=== PATIENT | female | born 1970 | race Caucasian/White ===

== ENCOUNTER 2016-07-15 08:12 | Day surgery (SDC) | payer OTHER ==
[~2016-07-15 08:12] MED LIST: Lactated Ringers 1,000 ML IV SCH; Lidocaine 1%/Sod Bicarbonate in NS 8.4% 1 ML Syringe PRN; Sodium Chloride 0.9% 10 ML Syringe FLUSH PRN
[2016-07-15] MEDS ORDERED: Propofol 200 MG/20 ML SDV ONE ×4 (08:15→11:03)
[2016-07-15] MEDS ORDERED: Lidocaine 1% 4 ML ONE (08:15)
[2016-07-15] MEDS ORDERED: fentaNYL 100 MCG/2 ML SDV ONE ×2 (08:15→10:03)
[2016-07-15] MEDS ORDERED: Ondansetron 4 MG/2 ML SDV ONE (08:15)
[2016-07-15] MEDS ORDERED: Midazolam 1 MG/ML 2 ML SDV ONE (08:15)
[2016-07-15] MEDS ORDERED: ceFAZolin 1 GM Vial ONE (08:28)
--- NOTE | 2016-07-15 08:39 | PCM.PREANE ---
Preanesthetic Assessment - Anesthesia/Transfusion/Family Hx Anesthesia History: Prior Anesthesia Without Reaction Family History of Anesthesia Reaction: No Transfusion History: No Prior Transfusion(s) - Review of Systems General: No Symptoms Pulmonary: No Symptoms Cardiovascular: No Symptoms Gastrointestinal: No symptoms Neurological: Seizure (age 5-12 years "I had epilepsy") Other: Reports: None - Physical Assessment NPO Status Date: 07/14/16 NPO Status Time: 20:00 Pulse: 58 O2 Sat by Pulse Oximetry: 100 Respiratory Rate: 16 Blood Pressure: 119/82 Temperature: 37.3 C Height: 1.68 m Weight: 56.699 kg ASA Class: 2 Mental Status: Alert & Oriented x3 Airway Class: Mallampati = 1 Dentition: Reports: Normal Dentition Thyro-Mental Finger Breadths: 3 Mouth Opening Finger Breadths: 3 ROM/Head Extension: Full Lungs: Clear to auscultation, Normal respiratory effort Cardiovascular: Regular Rate, Regular Rhythm, No Murmurs - Lab Values: Laboratory Last Values MRSA (PCR) Negative 07/13/16 09:40 - Allergies Allergies/Adverse Reactions: Allergies Allergy/AdvReac Type Severity Reaction Status Date / Time No Known Allergies Allergy Verified 07/14/16 15:44 - Blood Blood Available: No Product(s) Available: None - Anesthesia Plan Pre-Op Medication Ordered: None - Acknowledgements Anesthesia Type Planned: MAC Pt an Appropriate Candidate for the Planned Anesthesia: Yes Alternatives and Risks of Anesthesia Discussed w Pt/Guardian: Yes Pt/Guardian Understands and Agrees with Anesthesia Plan: Yes PreAnesthesia Questionnaire HEENT History: Reports: Allergic rhinitis Cardiovascular History: Reports: None Respiratory History: Reports: None Gastrointestinal History: Reports: None 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: , 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 Musculoskeletal History: Reports: Arthritis, Other (see below) Other Musculoskeletal History: 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, degenerative joint pain Neurological History: Reports: Seizure Psychiatric History: Reports: Anxiety, Depression Endocrine/Metabolic History: Reports: None Hematologic History: Reports: None Immunologic History: Reports: None Oncologic (Cancer) History: Reports: None Dermatologic History: Reports: Other (see below) Other Dermatologic History: acne, mixed cryofibrinogenemia - Past Surgical History Head Surgeries/Procedures: Reports: None HEENT Surgical History: Reports: Oral surgery Female Surgical History: Reports: Cervical cryotherapy, Tubal ligation Other Female Surgeries/Procedures: dysmenorrhea, menorrhagia, pre mentstural dyspohric disorder, thickened endometrium Male Surgical History: Reports: Other (see below) Musculoskeletal Surgical History: Reports: Other (see below) Other Musculoskeletal Surgeries/Procedures:: bilateral foot surgery, knee surgery - SUBSTANCE USE Smoking Status *Q: Former Smoker Days Per Week of Alcohol Use: 7 Number of Drinks Per Day: 1 Total Drinks Per Week: 7 Recreational Drug Use History: No - HOME MEDS Home Medications: Home Meds Citalopram Hydrobromide [Celexa] 40 mg PO DAILY 07/14/16 [History] Ethinyl Estradiol/Norgestrel [Cryselle 28-Day] 1 tab PO DAILY 07/14/16 [History] Multivitamin [Multivitamins] 1 tab PO DAILY 07/14/16 [History] Hydrocodone/Acetaminophen [Verona 5-325 Tablet] 1 - 2 each PO Q6H PRN #40 tablet 07/15/16 [Rx] Aspirin 325 mg PO BID #100 tablet 07/16/16 [Rx] - CURRENT (IN HOUSE) MEDS Current Meds: Current Medications Lactated Ringer's (Ringers, Lactated) 1,000 mls @ 125 mls/hr IV ASDIRECTED TYSON Stop: 07/15/16 23:00 Lidocaine/Sodium Bicarbonate (Buffered Lidocaine 1% In Ns 8.4%) 0.25 ml .XX ONETIME PRN PRN Reason: Prior to IV Start Stop: 07/15/16 18:00 Sodium Chloride (Saline Flush) 10 ml FLUSH ASDIRECTED PRN PRN Reason: Keep Vein Open Stop: 07/15/16 18:00 Discontinued Medications Cefazolin Sodium (Ancef) Confirm Administered Dose 2 gm .ROUTE .STK-MED ONE Stop: 07/15/16 08:29 Fentanyl (Sublimaze) Confirm Administered Dose 100 mcg .ROUTE .STK-MED ONE Stop: 07/15/16 08:16 Lidocaine HCl (Xylocaine-Mpf 1%) Confirm Administered Dose 4 mls @ as directed .ROUTE .STK-MED ONE Stop: 07/15/16 08:16 Midazolam HCl (Versed 1 Mg/Ml) Confirm Administered Dose 2 mg .ROUTE .STK-MED ONE Stop: 07/15/16 08:16 Ondansetron HCl (Zofran) Confirm Administered Dose 4 mg .ROUTE .STK-MED ONE Stop: 07/15/16 08:16 Propofol (Diprivan 20 Ml) Confirm Administered Dose 200 mg .ROUTE .STK-MED ONE Stop: 07/15/16 08:16 Preanesthetic Assessment - LAB Values: Laboratory Last Values MRSA (PCR) Negative 07/13/16 09:40 - ALLERGIES Allergies/Adverse Reactions: Allergies Allergy/AdvReac Type Severity Reaction Status Date / Time No Known Allergies Allergy Verified 07/14/16 15:44
[2016-07-15] MEDS ORDERED: Lidocaine 1% 30 ML SDV ONE (09:00)
[2016-07-15] MEDS ORDERED: Bupivacaine 0.25% 10 ML SDV ONE (09:01)
[2016-07-15] MEDS ORDERED: Bupivacaine 0.25% 30 ML SDV ONE (09:30)
[2016-07-15] MEDS ORDERED: Lactated Ringers 1,000 ML ONE (10:37)
--- NOTE | 2016-07-15 11:52 | CR ---
Right toe: Multiple fluoroscopic spot views were obtained utilizing C-arm device. Study shows surgery for bunionette deformity within the distal fifth metatarsal. Osteotomy is seen with pin placement. Fluoroscopy time given as 29.9 seconds. Impression: 1. Operative study as noted above. Diagnostic code #2
[2016-07-15] MEDS ORDERED: Acetaminophen/HYDROcodone 325-5 MG Tab PO ONE (12:45)
[2016-07-15 13:05] VITALS: BP 120/80
--- NOTE | 2016-07-21 13:16 | PCM.OPNOTE ---
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
--- NOTE | 2016-07-21 14:04 | OR ---
DATE OF OPERATION: 07/15/2016 SURGEON: Gilberto Duong MD OPERATION PERFORMED: 1. Right 5th metatarsal distal chevron osteotomy with bunionette correction. 2. Right 4th and 5th toe extensor lengthening with flexor tenotomy. 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 ANESTHESIA: Local MAC with regional block. ANESTHESIA PROVIDER: Luis Hutton CRNA. RADIOGRAPHY TECHNICIAN: Bobbi Alfaro PA-C. ESTIMATED BLOOD LOSS: Less than 15 mL. COMPLICATIONS: None. CONDITION: Stable. DESCRIPTION OF PROCEDURE: The patient was identified in the preop holding area. Proper site was marked and identified by the surgeon. The patient was taken back to the operating theater where after adequate anesthesia, the patient's right lower extremity was sterilely prepped and draped in the usual sterile fashion. OR time-out was performed. The patient received 2 g of IV Ancef. At this time, the right lower extremity was exsanguinated with a tourniquet on the thigh and tourniquet was insufflated to 250 mmHg. Ankle block was then performed along with anesthetization over the incisional area. Incision was made over the lateral aspect of the 5th distal metatarsal and this was taken down to the capsule and the capsulotomy was performed and a slight release of the medial capsule was then done. Next, distal chevron osteotomy was performed and this was removed roughly 4 to 5 mm medially with good correction and lateral eminence resection was then done as well. A K-wire was then placed in a retrograde fashion through the skin across the osteotomy site to hold it in place. It had good fixation at this time. At this time, attention was turned to the claw-toe deformities over both the 4th and 5th toes. Incision was made over the extensor tendons and both tendons were lengthened along with a capsulotomy performed of the dorsal capsule secondary to the MTP extension deformity. Next, incision was made over the proximal phalanx of both toes on plantar surface. The long toe to the flexor tendon was identified and tenotomy was performed at this time of both flexor tendons in 4th and 5th toes. Ethibond suture was used for suture to the length and the extensor tendons and a retrograde K-wire was placed through the small toe into the osteotomy site. This found to have adequate fixation with both pins. At this time, adequate saline was irrigated through the both wounds, lateral capsular closure with plication [id number] was done to the bunionette deformity using 0 Vicryl and 3-0 Vicryl was used subcutaneously and 4-0 nylon was used for the skin. The patient tolerated the procedure well and was sent to PACU in stable condition. MALIK /[id number]
== END 2016-07-15 13:00 | disposition home or self-care (01) ==
LOC: JD.SDS 08:12
PROVIDERS: ATTEND Orthopaedic Surgery
DX: M21.621 Bunionette of right foot (principal); M20.5X1 Other deformities of toe(s) (acquired), right foot; F41.9 Anxiety disorder, unspecified; M19.90 Unspecified osteoarthritis, unspecified site; Z79.899 Other long term (current) drug therapy; Z87.891 Personal history of nicotine dependence
CPT/HCPCS: 28110; 28232; 76000; 81025; 87641; C1713; C1769; J0690; J2250; J2405; J3010; J7120; 01480; J2704; J3490

== ENCOUNTER 2017-06-15 10:29 | Emergency (ER) | payer OTHER ==
[2017-06-15 10:48] VITALS: BP 131/77
[2017-06-15] MEDS ORDERED: Ibuprofen 800 MG Tab PO ONE (11:13)
--- NOTE | 2017-06-15 11:14 | EDM.PDOC ---
ED HPI GENERAL MEDICAL PROBLEM - General Chief Complaint: Upper Extremity Injury/Pain Stated Complaint: FALL ON ICE, SHOULDER PAIN Time Seen by Provider: 06/15/17 11:12 Source of Information: Reports: Patient - History of Present Illness INITIAL COMMENTS - FREE TEXT/NARRATIVE: Patient presents to the emergency room for right shoulder pain. She states that she was letting the dogs out and she slipped on the stairs this morning. She initially monitored and thought things would get better but it has not improved. Patient denies any chronic issues with the shoulder. Right Shoulder Pain Score (Numeric/FACES): 8 - Related Data Allergies Allergy/AdvReac Type Severity Reaction Status Date / Time No Known Allergies Allergy Verified 06/15/17 10:44 Home Meds: Home Meds Citalopram Hydrobromide [Celexa] 40 mg PO DAILY 07/14/16 [History] Orphenadrine [Norflex] 100 mg PO BID PRN #15 tab.er 06/15/17 [Rx] Vitamin D. 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, degenerative joint pain Neurological History: Reports: Seizure Psychiatric History: Reports: Anxiety, Depression Endocrine/Metabolic History: Reports: None Hematologic History: Reports: None Immunologic History: Reports: None Oncologic (Cancer) History: Reports: None Dermatologic History: Reports: Other (See Below) Other Dermatologic History: acne, mixed cryofibrinogenemia - Past Surgical History Head Surgeries/Procedures: Reports: None HEENT Surgical History: Reports: Oral Surgery Female Surgical History: Reports: Cervical Cryotherapy, Tubal Ligation Musculoskeletal Surgical History: Reports: Other (See Below) Social & Family History - Tobacco Use Smoking Status *Q: Unknown Ever Smoked Month Tobacco Last Used: 1989 - Alcohol Use Days Per Week of Alcohol Use: 7 Number of Drinks Per Day: 1 Total Drinks Per Week: 7 - Recreational Drug Use Recreational Drug Use: No Drug Use in Last 12 Months: No Review of Systems - Review of Systems Review Of Systems: See Below Constitutional: Reports: No Symptoms Musculoskeletal: Reports: Shoulder Pain. Denies: Neck Pain, Hand Pain Skin: Reports: No Symptoms Neurological: Reports: No Symptoms ED EXAM, GENERAL - Physical Exam Exam: See Below Exam Limited By: No Limitations General Appearance: Alert, WD/WN, No Apparent Distress Peripheral Pulses: 2+: Radial (R) Extremities: Normal Inspection (Right shoulder without ecchymosis or deformity.Tenderness to the shoulder joints and biceps muscle. Muscle spasm posteriorly.Patient has full range of motion of elbow and wrist. She has very painful, limited range of motion active range of motion of her right shoulder. Passive range of motion of the right shoulder produces little pain.) Neurological: Alert, Oriented, No Motor/Sensory Deficits Skin Exam: Warm, Dry, Intact. No: Ecchymosis, Erythema Course - Vital Signs Last Recorded V/S: Last Vital Signs Temp 99.0 F 06/15/17 10:45 Pulse 58 L 06/15/17 10:45 Resp 16 06/15/17 10:45 BP 131/77 06/15/17 10:45 Pulse Ox 100 06/15/17 10:45 - Orders/Labs/Meds Meds: Medications Discontinued Medications Generic Name Dose Route Start Last Admin Trade Name Freq PRN Reason Stop Dose Admin Ibuprofen 800 mg 06/15/17 11:13 06/15/17 11:17 Motrin PO 06/15/17 11:14 800 mg ONETIME ONE Administration - Re-Assessments/Exams Free Text/Narrative Re-Assessment/Exam: X-ray of the right shoulder demonstrates degenerative changes within the AC joint and cervical and thoracic spine but no other abnormality. This is likely muscular strain. Will discharge on anti-inflammatories, ice and muscle relaxant. She'll be in a sling as well. Discussed range of motion/pendulum exercises with her. She will follow-up with her PCP next week or certainly sooner if needed. 06/15/17 12:38 Departure - Departure Time of Disposition: 12:41 Disposition: Home, Self-Care 01 Condition: Good Clinical Impression: Right shoulder strain Qualifiers: Encounter type: initial encounter Qualified Code(s): S46.911A - Strain of unspecified muscle, fascia and tendon at shoulder and upper arm level, right arm , initial encounter - Discharge Information Prescriptions: Orphenadrine [Norflex] 100 mg PO BID PRN #15 tab.er PRN Reason: Muscle Spasm Instructions: Muscle Strain, [id number] Referrals: Charlene Eugene PA-C [Primary Care Provider] - Forms: ED Department Discharge Additional Instructions: Rest, activity as tolerated. Wear shoulder sling during the day for next 48hours. After this you may decrease the time and the sling based on your symptoms. Be sure to take the sling and do full range of motion exercises as we discussed at least 2 times per day. Ice 15 minutes every 2-3 hours as needed for pain. Ibuprofen 600 mg every 6 hours. Orphenadrine for muscle spasm 2 times daily as needed. Follow-up with her PCP within a week or sooner if symptoms not improving or any worsening. You may certainly return to the emergency room if needed.
--- NOTE | 2017-06-15 12:15 | CR ---
Right shoulder: Three views of the right shoulder were obtained. Comparison: Prior right shoulder examined 03/29/14. Joint space narrowing seen within the acromioclavicular joint. No abnormal inferior spurring is seen. Mild degenerative sclerosis seen on both sides of the acromioclavicular joint. Glenohumeral joint appears within normal limits. No fracture or other abnormality is seen. Mild scoliosis and mild degenerative change partially seen within the cervical and thoracic spine. Impression: 1. Degenerative change within the acromioclavicular joint. Degenerative change partially seen within the cervical and thoracic spine. 2. No additional abnormality is seen on right shoulder study. Diagnostic code #2
== END 2017-06-15 12:55 | disposition home or self-care (01) ==
LOC: JD.ED 10:29
DX: S46.911A Strain of unspecified muscle, fascia and tendon at shoulder and upper arm level, right arm, initial encounter (principal); F41.9 Anxiety disorder, unspecified; F32.9 Major depressive disorder, single episode, unspecified; Z87.891 Personal history of nicotine dependence; Z79.899 Other long term (current) drug therapy; W10.9XXA Fall (on) (from) unspecified stairs and steps, initial encounter
CPT/HCPCS: 73030; 99283; A9270

== ENCOUNTER 2017-06-27 11:30 | Inpatient (IN) | payer OTHER ==
[2017-06-30] MEDS ORDERED: Sodium Chloride 0.9% 10 ML Syringe FLUSH PRN (00:01)
[2017-06-30] MEDS ORDERED: Lactated Ringers 1,000 ML IV SCH (00:01)
[2017-06-30] MEDS ORDERED: Lidocaine 1%/Sod Bicarbonate in NS 8.4% 1 ML Syringe IDERM PRN (00:01)
[2017-06-30] MEDS ORDERED: Ketorolac 15 MG/ML SDV IVPUSH PRN (06:51)
[2017-06-30] MEDS ORDERED: Cyclobenzaprine 10 MG Tab PO PRN (06:51)
[2017-06-30] MEDS ORDERED: Magnesium Hydroxide 400 MG/5 ML Susp 30 ML Cup PO PRN (06:52)
[2017-06-30] MEDS ORDERED: Bisacodyl 5 MG Tab PO PRN (06:52)
[2017-06-30] MEDS ORDERED: diphenhydrAMINE 50 MG/ML SDV IVPUSH PRN ×2 (06:52→14:14)
[2017-06-30] MEDS ORDERED: Sennosides 8.6 MG Tab PO PRN (06:52)
[2017-06-30] MEDS ORDERED: Naloxone 0.4 MG/ML SDV IVPUSH PRN (06:52)
[2017-06-30] MEDS ORDERED: Morphine 2 MG/ML Syringe IVPUSH PRN (06:52)
[2017-06-30] MEDS ORDERED: Ondansetron 4 MG/2 ML SDV IVPUSH PRN (06:52)
[2017-06-30] MEDS ORDERED: Dexamethasone 4 MG/ML 5 ML MDV ONE (08:22)
[2017-06-30] MEDS ORDERED: Lidocaine 1% 6 ML ONE (08:22)
[2017-06-30] MEDS ORDERED: Ketorolac 30 MG/ML SDV ONE (08:22)
[2017-06-30] MEDS ORDERED: Ondansetron 4 MG/2 ML SDV ONE (08:22)
[2017-06-30] MEDS ORDERED: Propofol 200 MG/20 ML SDV ONE ×3 (08:22→13:45)
[2017-06-30] MEDS ORDERED: Midazolam 1 MG/ML 2 ML SDV ONE (08:23)
[2017-06-30] MEDS ORDERED: fentaNYL 100 MCG/2 ML SDV ONE (08:23)
[2017-06-30] MEDS ORDERED: Morphine PF 10 MG/10 ML SDV ONE (08:23)
[2017-06-30] MEDS ORDERED: Pregabalin 25 MG Cap PO ONE (10:00)
[2017-06-30] MEDS ORDERED: oxyCODONE ER 10 MG TAB.ER PO ONE (10:00)
[2017-06-30] MEDS ORDERED: ceFAZolin 1 GM Vial ONE (10:23)
--- NOTE | 2017-06-30 10:25 | PCM.PREANE ---
Preanesthetic Assessment - Anesthesia/Transfusion/Family Hx Anesthesia History: Prior Anesthesia Without Reaction Family History of Anesthesia Reaction: No Transfusion History: No Prior Transfusion(s) - Review of Systems General: No Symptoms Pulmonary: No Symptoms Cardiovascular: No Symptoms Gastrointestinal: No Symptoms Neurological: No Symptoms, Seizure (Childhood epilepsy, last one at about age 13.) Other: Reports: None, Depression, Anxiety - Physical Assessment NPO Status Date: 06/30/17 NPO Status Time: 22:30 O2 Sat by Pulse Oximetry: 99 Respiratory Rate: 16 Vital Signs: Last Vital Signs Temp 37.5 C 06/30/17 10:00 Pulse 69 06/30/17 10:00 Resp 16 06/30/17 10:00 BP 124/86 06/30/17 10:00 Pulse Ox 99 06/30/17 10:00 Weight: 64 kg ASA Class: 1 Mental Status: Alert & Oriented x3 Airway Class: Mallampati = 1 Dentition: Reports: Normal Dentition Thyro-Mental Finger Breadths: 3 Mouth Opening Finger Breadths: 3 ROM/Head Extension: Full Lungs: Clear to Auscultation, Normal Respiratory Effort Cardiovascular: Regular Rate, Regular Rhythm - Lab Values: Laboratory Last Values MRSA (PCR) Negative 06/14/17 16:39 - Allergies Allergies/Adverse Reactions: Allergies Allergy/AdvReac Type Severity Reaction Status Date / Time No Known Allergies Allergy Verified 06/29/17 16:19 - Acknowledgements Anesthesia Type Planned: Spinal, Regional Block (Femoral Nerve Block in Adductor Canal post op.) Pt an Appropriate Candidate for the Planned Anesthesia: Yes Alternatives and Risks of Anesthesia Discussed w Pt/Guardian: Yes Pt/Guardian Understands and Agrees with Anesthesia Plan: Yes PreAnesthesia Questionnaire HEENT History: Reports: Allergic Rhinitis, Impaired Vision Cardiovascular History: Reports: None Respiratory History: Reports: None Gastrointestinal History: Reports: None Genitourinary History: Reports: None 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: , 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 Musculoskeletal History: Reports: Arthritis, Other (See Below) Other Musculoskeletal History: 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, degenerative joint pain Neurological History: Reports: Seizure Psychiatric History: Reports: Anxiety, Depression Endocrine/Metabolic History: Reports: None Hematologic History: Reports: Other (See Below) Other Hematologic History: erythrocytopenia, cryofibrinogenemia Immunologic History: Reports: None Oncologic (Cancer) History: Reports: None Dermatologic History: Reports: Other (See Below) Other Dermatologic History: acne, mixed cryofibrinogenemia - Past Surgical History Head Surgeries/Procedures: Reports: None HEENT Surgical History: Reports: Oral Surgery Cardiovascular Surgical History: Reports: None Respiratory Surgical History: Reports: None GI Surgical History: Reports: None Female Surgical History: Reports: Cervical Cryotherapy, Tubal Ligation Other Female Surgeries/Procedures: dysmenorrhea, menorrhagia, pre mentstural dyspohric disorder, thickened endometrium Male Surgical History: Reports: Other (See Below) Endocrine Surgical History: Reports: None Neurological Surgical History: Reports: None Musculoskeletal Surgical History: Reports: Other (See Below) Other Musculoskeletal Surgeries/Procedures:: bilateral foot surgery, knee surgery Oncologic Surgical History: Reports: None - SUBSTANCE USE Smoking Status *Q: Former Smoker Days Per Week of Alcohol Use: 7 Number of Drinks Per Day: 1 Total Drinks Per Week: 7 Recreational Drug Use History: No - HOME MEDS Home Medications: Home Meds Citalopram Hydrobromide [Celexa] 40 mg PO DAILY 07/14/16 [History] Cholecalciferol (Vitamin D3) [Vitamin D3] 5,000 unit PO DAILY 06/29/17 [History] - CURRENT (IN HOUSE) MEDS Current Meds: Current Medications Aspirin (Ecotrin) 325 mg PO BID TYSON Bisacodyl (Dulcolax) 5 mg PO DAILY PRN PRN Reason: Constipation Morphine Sulfate 8 mg/Epinephrine HCl 0.3 mg/Cefuroxime Sodium 750 mg/Ketorolac Tromethamine 30 mg/Sodium Chloride 27.9 ml 0 mg .XX ONETIME ONE Stop: 06/30/17 12:01 Cyclobenzaprine HCl (Flexeril) 10 mg PO TID PRN PRN Reason: Spasms Diphenhydramine HCl (Benadryl) 25 mg IVPUSH Q4H PRN PRN Reason: Nausea Docusate Sodium (Colace) 100 mg PO BID TYSON Famotidine (Pepcid) 20 mg PO Q12H TYSON Lactated Ringer's (Ringers, Lactated) 1,000 mls @ 125 mls/hr IV ASDIRECTED TYSON Stop: 06/30/17 23:00 Cefazolin Sodium/Dextrose 2 gm (/ Premix) 50 mls @ 100 mls/hr IV Q8H TYSON Stop: 06/30/17 23:29 Ketorolac Tromethamine (Toradol) 15 mg IVPUSH Q6H PRN PRN Reason: Pain Lidocaine/Sodium Bicarbonate (Buffered Lidocaine 1% In Ns 8.4%) 0.25 ml IDERM ONETIME PRN PRN Reason: Prior to IV Start Stop: 06/30/17 18:00 Magnesium Hydroxide (Milk Of Magnesia) 30 ml PO BID PRN PRN Reason: Constipation Morphine Sulfate (Morphine) 2 mg IVPUSH Q2H PRN PRN Reason: Breakthrough Pain Naloxone HCl (Narcan) 0.1 mg IVPUSH Q5M PRN PRN Reason: Oversedation Ondansetron HCl (Zofran) 4 mg IVPUSH Q6H PRN PRN Reason: Nausea/Vomiting Oxycodone/Acetaminophen (Percocet 325-5 Mg) 1 - 2 tab PO Q4H PRN PRN Reason: Pain Senna (Senna) 8.6 mg PO BID PRN PRN Reason: Constipation Sodium Chloride (Saline Flush) 10 ml FLUSH ASDIRECTED PRN PRN Reason: Keep Vein Open Stop: 06/30/17 18:00 Discontinued Medications Cefazolin Sodium (Ancef) Confirm Administered Dose 2 gm .ROUTE .STK-MED ONE Stop: 06/30/17 08:23 Dexamethasone (Dexamethasone) Confirm Administered Dose 20 mg .ROUTE .STK-MED ONE Stop: 06/30/17 08:23 Fentanyl (Sublimaze) Confirm Administered Dose 100 mcg .ROUTE .STK-MED ONE Stop: 06/30/17 08:24 Lidocaine HCl (Xylocaine-Mpf 1%) Confirm Administered Dose 6 mls @ as directed .ROUTE .STK-MED ONE Stop: 06/30/17 08:23 Acetaminophen (Ofirmev) 100 mls @ 400 mls/hr IV NOW ONE Stop: 06/30/17 10:04 Ketorolac Tromethamine (Toradol) Confirm Administered Dose 30 mg .ROUTE .STK- MED ONE Stop: 06/30/17 08:23 Midazolam HCl (Versed 1 Mg/Ml) Confirm Administered Dose 2 mg .ROUTE .STK-MED ONE Stop: 06/30/17 08:24 Morphine Sulfate (Duramorph Pf) Confirm Administered Dose 10 mg .ROUTE .STK-MED ONE Stop: 06/30/17 08:24 Ondansetron HCl (Zofran) Confirm Administered Dose 4 mg .ROUTE .STK-MED ONE Stop: 06/30/17 08:23 Oxycodone HCl (Oxycontin) 10 mg PO ONETIME ONE Stop: 06/30/17 10:01 Pregabalin (Lyrica) 50 mg PO ONETIME ONE Stop: 06/30/17 10:01 Propofol (Diprivan 20 Ml) Confirm Administered Dose 400 mg .ROUTE .STK-MED ONE Stop: 06/30/17 08:23 Propofol (Diprivan 20 Ml) Confirm Administered Dose 200 mg .ROUTE .STK-MED ONE Stop: 06/30/17 08:40
[2017-06-30] MEDS ORDERED: Ropivacaine 0.5% 5 MG/ML 30 ML SDV ONE (10:34)
[2017-06-30] MEDS ORDERED: EPINEPHrine 1 MG/ML SDV ONE (10:34)
[2017-06-30] MEDS: Iodine/Sodium Iodide 2% Tincture 30 ML Bottle ONE ×2 (13:21→13:22)
[2017-06-30] MEDS: ceFAZolin 1 GM Vial ONE ×2 (13:23→13:24)
[2017-06-30] MEDS: Vancomycin 1 GM SDV ONE ×3 (13:24→13:31)
[2017-06-30] MEDS: Bupivacaine 0.25% 30 ML SDV ONE ×2 (13:24→13:30)
[2017-06-30] MEDS: Morphine 8 MG, EPINEPHrine 0.3 MG, Cefuroxime 750 MG, Ketorolac 30 MG, Sodium Chloride ... ONE ×10 (13:24→13:30)
[2017-06-30] MEDS ORDERED: fentaNYL 100 MCG/2 ML SDV IVPUSH PRN (14:14)
[2017-06-30] MEDS ORDERED: Midazolam 1 MG/ML 2 ML SDV IVPUSH PRN (14:14)
[2017-06-30] MEDS ORDERED: HYDROmorphone 0.5 MG/0.5 ML Syringe IVPUSH PRN (14:14)
--- NOTE | 2017-06-30 14:15 | PCM.POSTAN ---
POST ANESTHESIA ASSESSMENT - MENTAL STATUS Mental Status: Alert, Oriented - VITAL SIGNS Pulse Rate: 73 SaO2: 100 Resp Rate: 11 Blood Pressure: 104/66 Temperature: 37.2 C - RESPIRATORY Respiratory Status: Respiratory Rate WNL, Airway Patent, O2 Saturation Stable, Supplemental Oxygen - CARDIOVASCULAR CV Status: Pulse Rate WNL, Blood Pressure Stable - GASTROINTESTINAL GI Status: No Symptoms - PAIN Pain Score: 0 - POST OP HYDRATION Hydration Status: Adequate & Stable
[2017-06-30] MEDS: Acetaminophen/oxyCODONE 325-5 MG Tab PO PRN ×2 (14:25→21:01)
--- NOTE | 2017-06-30 14:42 | CR ---
Left knee: AP and lateral views of the left knee were obtained. Comparison: No prior left knee exam. Knee prosthesis is seen. Components are aligned. Underlying bony structures are intact. Soft tissue air is noted from the surgical procedure. Impression: 1. Satisfactory radiographic appearance of recently placed left knee prosthesis. Diagnostic code #2
--- NOTE | 2017-06-30 14:52 | PCM.SN ---
- Free Text/Narrative Note: Left selective femoral nerve block at the adductor canal for post-procedure pain control Time Out: 1430 Start: 1433 End: 1437 Chart reviewed. Consent signed. Questions answered. Appropriate monitors applied. Time out performed. Left mid-shaft femur evaluated with ultrasound. Scanning medially femur, I was able to identify the femoral artery in the adductor canal. The saphenous nerve was lateral to the artery. The skin was prepped lateral to the ultrasound probe with chlorahexadine. The 21ga [id number] insulated block needle was inserted under direct ultrasound guidance into the adductor canal. 25mL of 0.5% ropivacaine with 1:200,000 epinephrine was injected cirmcumferentially about the nerve with intermittent negative aspiration every 5mL. Patient tolerated the procedure well. See pictures on progress note and vital signs on nurses notes. Quinn Lara CRNA
[2017-06-30] MEDS: ceFAZolin 2 GM in Premix Bag 1 BAG IV SCH (17:31)
[2017-06-30] MEDS: Docusate Sodium 100 MG Cap PO SCH (21:00)
[2017-06-30] MEDS: Famotidine 20 MG Tab PO SCH (21:01)
--- NOTE | 2017-06-30 21:53 | PCM.CONS ---
H&P History of Present Illness - General Date of Service: 06/30/17 Admit Problem/Dx: Admission Diagnosis/Problem Admission Diagnosis/Problem Osteoarthritis of knee Source of Information: Patient, Old Records, Provider, RN, Other (surgical notes ) History Limitations: Reports: No Limitations - History of Present Illness Initial Comments - Free Text/Narative: Rand Etienne is a 47 yo female patient of Dr. Duong who is post-operative day 0 of left TKA. Hospital medicine was consulted for post-operative medical care. At this time she is resting comfortably in bed. Pain is controlled. She denies any chest pain, shortness of breath, palpitations, nausea, or vomiting. She carries a history of: childhood epilepsy resolving around age 13, anxiety, depression, OA, arthritis. She is a former smoker. She reports drinking 2 glasses of wine daily. She is a full code. Her primary care provider is Charlene Eugene PA-C, here at [facility]. Left Knee Pain Score (Numeric/FACES): 4 - Related Data Allergies/Adverse Reactions: Allergies Allergy/AdvReac Type Severity Reaction Status Date / Time No Known Allergies Allergy Verified 06/30/17 16:36 Home Medications: Home Meds Citalopram Hydrobromide [Celexa] 40 mg PO DAILY 07/14/16 [History] Cholecalciferol (Vitamin D3) [Vitamin D3] 5,000 unit PO DAILY 06/29/17 [History] Acetaminophen [Tylenol Extra Strength] 1,000 mg PO Q6H PRN 06/30/17 [History] Past Medical History HEENT History: Reports: Allergic Rhinitis, Other (See Below) Other HEENT History: wears glasses Cardiovascular History: Reports: None Respiratory History: Reports: None Gastrointestinal History: Reports: None Genitourinary History: Reports: None 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: , Spontaneous Musculoskeletal History: Reports: Arthritis, Other (See Below) Other Musculoskeletal History: 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, degenerative joint pain Neurological History: Reports: Seizure, Other (See Below) Other Neuro History: epilepsy as a child, states she grew out of it around the age of 13 Psychiatric History: Reports: Anxiety, Depression Endocrine/Metabolic History: Reports: None Hematologic History: Reports: Other (See Below) Other Hematologic History: erythrocytopenia, cryofibrinogenemia Immunologic History: Reports: None Oncologic (Cancer) History: Reports: None Dermatologic History: Reports: Other (See Below) Other Dermatologic History: acne, mixed cryofibrinogenemia - Past Surgical History Head Surgeries/Procedures: Reports: None Cardiovascular Surgical History: Reports: None Respiratory Surgical History: Reports: None GI Surgical History: Reports: None Female Surgical History: Reports: Cervical Cryotherapy, Tubal Ligation Other Female Surgeries/Procedures: dysmenorrhea, menorrhagia, pre mentstural dyspohric disorder, thickened endometrium Endocrine Surgical History: Reports: None Neurological Surgical History: Reports: None Musculoskeletal Surgical History: Reports: Other (See Below) Other Musculoskeletal Surgeries/Procedures:: bilateral foot surgery, knee surgery Oncologic Surgical History: Reports: None Dermatological Surgical History: Reports: None Social & Family History - Family History Family Medical History: Noncontributory - Tobacco Use Smoking Status *Q: Former Smoker Years of Tobacco use: 6 Used Tobacco, but Quit: Yes Month/Year Tobacco Last Used: 1996 - Caffeine Use Caffeine Use: Reports: Coffee - Alcohol Use Days Per Week of Alcohol Use: 7 Number of Drinks Per Day: 2 Total Drinks Per Week: 14 - Recreational Drug Use Recreational Drug Use: No Drug Use in Last 12 Months: No H&P Review of Systems - Review of Systems: Review Of Systems: See Below General: Reports: No Symptoms HEENT: Reports: No Symptoms Pulmonary: Reports: No Symptoms Cardiovascular: Reports: No Symptoms Gastrointestinal: Reports: No Symptoms Genitourinary: Reports: No Symptoms Musculoskeletal: Reports: Neck Pain, Shoulder Pain (right), Joint Pain (left knee ) Skin: Reports: No Symptoms Psychiatric: Reports: No Symptoms Neurological: Reports: No Symptoms Hematologic/Lymphatic: Reports: No Symptoms Immunologic: Reports: No Symptoms Exam - Exam Exam: See Below - Vital Signs Vital Signs: Last Vital Signs Temp 97.9 F 06/30/17 15:57 Pulse 78 06/30/17 16:32 Resp 16 06/30/17 15:57 BP 114/76 06/30/17 16:32 Pulse Ox 99 06/30/17 16:32 Weight: 142 lb - Exam Quality Assessment: Urinary Catheter, DVT Prophylaxis General: Alert, Oriented, Cooperative. No: Mild Distress HEENT: PERRLA, Hearing Intact, Mucosa Moist & Belcher, Nares Patent, Normal Nasal Septum, Posterior Pharynx Clear, Conjunctiva Clear, EOMI, EACs Clear, TMs Clear Neck: Supple, Trachea Midline Lungs: Clear to Auscultation, Normal Respiratory Effort Cardiovascular: Regular Rate, Regular Rhythm GI/Abdominal Exam: Normal Bowel Sounds, Soft, Non-Tender, No Organomegaly, No Distention, No Abnormal Bruit, No Mass, Pelvis Stable (Female) Exam: Deferred Rectal (Female) Exam: Deferred Back Exam: Normal Inspection, Full Range of Motion Extremities: No Pedal Edema, Normal Capillary Refill, Leg Pain, Limited Range of Motion (left leg), Other (MARIA LUISA bandage on left leg. Bandage is dry and intact. Cooling pack in place. ) Peripheral Pulses: 2+: Radial (L), Radial (R), Posterior Tibial (R), Dorsalis Pedis (R) Skin: Warm, Dry, Intact Neurological: Cranial Nerves Intact (grossly ) Neuro Extensive - Mental Status: Alert, Oriented x3, Normal Mood/Affect, Normal Cognition, Memory Intact Psychiatric: Alert, Normal Affect, Normal Mood Consult PN Assessment/Plan POD#: 0 Procedures: Procedures ASSAY OF FREE THYROXINE (01/08/14) ASSAY OF PREALBUMIN (06/08/17) ASSAY THYROID STIM HORMONE (01/08/14) C-REACTIVE PROTEIN (10/21/16) COMPLETE CBC AUTOMATED (01/27/16) COMPLETE CBC W/AUTO DIFF WBC (06/08/17) COMPREHEN METABOLIC PANEL (06/08/17) EMERGENCY DEPT VISIT (06/15/17) FLUOROSCOPY <1 HR PHYS/QHP (07/15/16) INCISION OF TOE TENDON (07/15/16) METABOLIC PANEL TOTAL CA (10/21/16) MR-STAPH DNA AMP PROBE (07/15/16) PART REMOVAL OF METATARSAL (07/15/16) PROTHROMBIN TIME (06/08/17) RBC SED RATE AUTOMATED (10/21/16) RHEUMATOID FACTOR TEST QUAL (01/27/16) ROUTINE VENIPUNCTURE (06/08/17) THROMBOPLASTIN TIME PARTIAL (06/08/17) TISSUE EXAM BY PATHOLOGIST (01/28/14) TRANSVAGINAL US NON-OB (05/10/17) URINALYSIS AUTO W/O SCOPE (07/13/16) URINALYSIS AUTO W/SCOPE (06/08/17) URINE TEST (04/06/17) X-RAY EXAM CHEST 2 VIEWS (06/08/17) X-RAY EXAM OF FINGER(S) (08/21/15) X-RAY EXAM OF SHOULDER (06/15/17) (1) S/P total knee arthroplasty SNOMED Code(s): 0340567774180, 7174758106882 Code(s): Z96.659 - PRESENCE OF UNSPECIFIED ARTIFICIAL KNEE JOINT Priority: High Current Visit: Yes Qualifiers: Laterality: left Qualified Code(s): Z96.652 - Presence of left artificial knee joint (2) Osteoarthritis SNOMED Code(s): 987746112 Code(s): M19.90 - UNSPECIFIED OSTEOARTHRITIS, UNSPECIFIED SITE Priority: High Current Visit: Yes Qualifiers: Osteoarthritis location: knee Osteoarthritis type: primary Laterality: left Qualified Code(s): M17.12 - Unilateral primary osteoarthritis, left knee (3) Anxiety SNOMED Code(s): 98210627 Code(s): F41.9 - ANXIETY DISORDER, UNSPECIFIED Priority: Low Current Visit: No (4) Other specified depressive episodes SNOMED Code(s): 76076003 Code(s): F32.89 - OTHER SPECIFIED DEPRESSIVE EPISODES Priority: Low Current Visit: No (5) Arthritis SNOMED Code(s): 8485034 Code(s): M19.90 - UNSPECIFIED OSTEOARTHRITIS, UNSPECIFIED SITE Priority: Low Current Visit: No Problem List Initiated/Reviewed/Updated: Yes Plan: I/P: Acute: S/P left total knee arthroplasty - post-operative day 0 -DVT prophylaxis and pain management per primary care team -PT/OT -IS/RT -Monitor oxygen saturation -Titrate oxygen as needed -Vital signs stable -Monitor labs -Pre-operative Hgb was 13.5 Osteoarthritis of left knee -Pain management per primary care team Mild QT prolongation on preoperative EKG -Telemetry Chronic: Anxiety Depression Arthritis Hx/o childhood epilepsy resolving around age 13 Plan: CM for discharge planning GI prophylaxis Home medications as indicated Other orders as listed above Routine AM labs She is a full code. Her PCP is Charlene Eugene PA-C at [facility] Thank you for allowing us to participate in the care of this patient!! Requesting Provider: Dr. Duong Date Consult Requested: 06/30/17 Reason for Consult: Post-operative medical care Patient History Reviewed: Yes Admission H&P Reviewed: Yes Time Spent (in minutes): 25
[2017-07-01] MEDS: ceFAZolin 2 GM in Premix Bag 1 BAG IV SCH ×2 (01:56→10:40)
[2017-07-01] MEDS: Acetaminophen/oxyCODONE 325-5 MG Tab PO PRN ×3 (02:07→12:52)
--- NOTE | 2017-07-01 07:36 | PCM.SURGPN ---
- General Info Date of Service: 07/01/17 POD#: 1 Functional Status: Reports: Pain Controlled, Tolerating Diet, Ambulating, Urinating, Incentive Spirometry - Review of Systems Musculoskeletal: Reports: Other (The pt has progressed well with therapy goals.) - Patient Data Vitals - Most Recent: Last Vital Signs Temp 98.1 F 07/01/17 03:25 Pulse 62 07/01/17 03:25 Resp 19 07/01/17 03:25 BP 123/74 07/01/17 03:25 Pulse Ox 98 07/01/17 03:25 Weight - Most Recent: 150 lb 4.8 oz I&O - Last 24 Hours: Intake & Output 06/30/17 07/01/17 07/01/17 22:59 06:59 14:59 Intake Total 345 550 Output Total 325 2300 Balance 20 -1750 Lab Results Last 24 Hrs: Laboratory Results - last 24 hr 07/01/17 Range/Units 06:41 WBC 10.63 H (3.98-10.04) K/mm3 RBC 2.96 L (3.98-5.22) M/mm3 Hgb 9.3 L (11.2-15.7) gm/L Hct 29.2 L (34.1-44.9) % MCV 98.6 H (79.4-94.8) fl MCH 31.4 (25.6-32.2) pg MCHC 31.8 L (32.2-35.5) g/dl RDW Std Deviation 42.6 (36.4-46.3) fL Plt Count 177 L (182-369) K/mm3 MPV 11.2 (9.4-12.3) fl Med Orders - Current: Current Medications Aspirin (Ecotrin) 325 mg PO BID [facility] Bisacodyl (Dulcolax) 5 mg PO DAILY PRN PRN Reason: Constipation Cholecalciferol (Vitamin D3) 5,000 units PO DAILY [facility] Citalopram Hydrobromide (Celexa) 40 mg PO DAILY [facility] Cyclobenzaprine HCl (Flexeril) 10 mg PO TID PRN PRN Reason: Spasms Last Admin: 07/01/17 02:07 Dose: 10 mg Docusate Sodium (Colace) 100 mg PO BID TYSON Last Admin: 06/30/17 21:00 Dose: Not Given Famotidine (Pepcid) 20 mg PO Q12H [facility] Last Admin: 06/30/17 21:01 Dose: Not Given Cefazolin Sodium/Dextrose 2 gm (/ Premix) 50 mls @ 100 mls/hr IV Q8H [facility] Stop: 07/01/17 10:59 Last Admin: 07/01/17 01:56 Dose: 100 mls/hr Ketorolac Tromethamine (Toradol) 15 mg IVPUSH Q6H PRN PRN Reason: Pain Last Admin: 06/30/17 21:02 Dose: 15 mg Magnesium Hydroxide (Milk Of Magnesia) 30 ml PO BID PRN PRN Reason: Constipation Morphine Sulfate (Morphine) 2 mg IVPUSH Q2H PRN PRN Reason: Breakthrough Pain Naloxone HCl (Narcan) 0.1 mg IVPUSH Q5M PRN PRN Reason: Oversedation Ondansetron HCl (Zofran) 4 mg IVPUSH Q6H PRN PRN Reason: Nausea/Vomiting Oxycodone/Acetaminophen (Percocet 325-5 Mg) 1 - 2 tab PO Q4H PRN PRN Reason: Pain Last Admin: 07/01/17 02:07 Dose: 2 tab Senna (Senna) 8.6 mg PO BID PRN PRN Reason: Constipation Discontinued Medications Bupivacaine HCl (Marcaine 0.25%) Confirm Administered Dose 30 ml .ROUTE .STK- MED ONE Stop: 06/30/17 10:24 Last Admin: 06/30/17 13:30 Dose: 30 ml Cefazolin Sodium (Ancef) Confirm Administered Dose 2 gm .ROUTE .STK-MED ONE Stop: 06/30/17 08:23 Last Admin: 06/30/17 13:24 Dose: 2 gm Cefazolin Sodium (Ancef) Confirm Administered Dose 2 gm .ROUTE .STK-MED ONE Stop: 06/30/17 10:24 Morphine Sulfate 8 mg/Epinephrine HCl 0.3 mg/Cefuroxime Sodium 750 mg/Ketorolac Tromethamine 30 mg/Sodium Chloride 27.9 ml 0 mg .XX ONETIME ONE Stop: 06/30/17 12:01 Last Admin: 06/30/17 13:30 Dose: 788.3 mg Dexamethasone (Dexamethasone) Confirm Administered Dose 20 mg .ROUTE .STK-MED ONE Stop: 06/30/17 08:23 Diphenhydramine HCl (Benadryl) 25 mg IVPUSH Q4H PRN PRN Reason: Nausea Diphenhydramine HCl (Benadryl) 25 mg IVPUSH Q6H PRN PRN Reason: Pruritis Stop: 06/30/17 18:00 Epinephrine HCl (Adrenalin) Confirm Administered Dose 1 mg .ROUTE .STK-MED ONE Stop: 06/30/17 10:35 Fentanyl (Sublimaze) Confirm Administered Dose 100 mcg .ROUTE .STK-MED ONE Stop: 06/30/17 08:24 Fentanyl (Sublimaze) 50 mcg IVPUSH Q5M PRN PRN Reason: Pain Stop: 06/30/17 16:00 Last Admin: 06/30/17 14:40 Dose: 50 mcg Hydromorphone HCl (Dilaudid) 0.5 mg IVPUSH ASDIRECTED PRN PRN Reason: Severe Pain Stop: 06/30/17 16:00 Lactated Ringer's (Ringers, Lactated) 1,000 mls @ 125 mls/hr IV ASDIRECTED [facility] Stop: 06/30/17 23:00 Last Admin: 06/30/17 10:10 Dose: 125 mls/hr Lidocaine HCl (Xylocaine-Mpf 1%) Confirm Administered Dose 6 mls @ as directed .ROUTE .STK-MED ONE Stop: 06/30/17 08:23 Acetaminophen (Ofirmev) 100 mls @ 400 mls/hr IV NOW ONE Stop: 06/30/17 10:04 Last Admin: 06/30/17 20:02 Dose: Not Given Iodine (Iodine 2% Mild Tincture) Confirm Administered Dose 30 ml .ROUTE .STK- MED ONE Stop: 06/30/17 10:24 Last Admin: 06/30/17 13:22 Dose: 18 ml Ketorolac Tromethamine (Toradol) Confirm Administered Dose 30 mg .ROUTE .STK- MED ONE Stop: 06/30/17 08:23 Lidocaine/Sodium Bicarbonate (Buffered Lidocaine 1% In Ns 8.4%) 0.25 ml IDERM ONETIME PRN PRN Reason: Prior to IV Start Stop: 06/30/17 18:00 Last Admin: 06/30/17 10:10 Dose: 0.25 ml Midazolam HCl (Versed 1 Mg/Ml) Confirm Administered Dose 2 mg .ROUTE .STK-MED ONE Stop: 06/30/17 08:24 Midazolam HCl (Versed 1 Mg/Ml) 2 mg IVPUSH ONETIME PRN PRN Reason: Sedation Stop: 06/30/17 16:00 Morphine Sulfate (Duramorph Pf) Confirm Administered Dose 10 mg .ROUTE .STK-MED ONE Stop: 06/30/17 08:24 Ondansetron HCl (Zofran) Confirm Administered Dose 4 mg .ROUTE .STK-MED ONE Stop: 06/30/17 08:23 Oxycodone HCl (Oxycontin) 10 mg PO ONETIME ONE Stop: 06/30/17 10:01 Last Admin: 06/30/17 10:34 Dose: 10 mg Pregabalin (Lyrica) 50 mg PO ONETIME ONE Stop: 06/30/17 10:01 Last Admin: 06/30/17 10:34 Dose: 50 mg Propofol (Diprivan 20 Ml) Confirm Administered Dose 400 mg .ROUTE .STK-MED ONE Stop: 06/30/17 08:23 Propofol (Diprivan 20 Ml) Confirm Administered Dose 200 mg .ROUTE .STK-MED ONE Stop: 06/30/17 08:40 Propofol (Diprivan 20 Ml) Confirm Administered Dose 200 mg .ROUTE .STK-MED ONE Stop: 06/30/17 13:46 Ropivacaine (Naropin 0.5%) Confirm Administered Dose 30 ml .ROUTE .STK-MED ONE Stop: 06/30/17 10:35 Sodium Chloride (Saline Flush) 10 ml FLUSH ASDIRECTED PRN PRN Reason: Keep Vein Open Stop: 06/30/17 18:00 Tranexamic Acid (Cyklokapron) Confirm Administered Dose 1,000 mg .ROUTE .STK- MED ONE Stop: 06/30/17 10:24 Last Admin: 06/30/17 13:36 Dose: 1,000 mg Vancomycin HCl (Vancomycin) Confirm Administered Dose 1 gm .ROUTE .STK-MED ONE Stop: 06/30/17 10:24 Last Admin: 06/30/17 13:31 Dose: 1 gm - Exam Wound/Incisions: Dressing Dry and Intact General: Alert, Cooperative, No Acute Distress Lungs: Normal Respiratory Effort Extremities: Other (NVS intact for BLE, Kasia's negative. Strong quad contraction noted LLE.) - Problem List Review Problem List Initiated/Reviewed/Updated: Yes - My Orders Last 24 Hours: Active Orders 24 hr Category Date Time Status Patient Status [ADT] Routine ADT 06/30/17 10:23 Active Ambulate [RC] PER UNIT ROUTINE Care 06/30/17 06:52 Active Antiembolic Devices [RC] 10, Care 06/30/17 06:52 Active Cooling Measures [Cooling Warming Measures] [RC] Care 06/30/17 22:29 Active ASDIRECTED Cooling Warming Measures [RC] ASDIRECTED Care 06/30/17 14:14 Inactive May Shower [RC] ASDIRECTED Care 06/30/17 06:52 Active Notify Provider Consults [RC] ASDIRECTED Care 06/30/17 06:56 Active Notify Provider [RC] ASDIRECTED Care 06/30/17 14:14 Active Oxygen Therapy [RC] PRN Care 06/30/17 06:52 Active Pulse Oximetry [RC] ASDIRECTED Care 06/30/17 14:14 Active RT Incentive Spirometry [RC] Q1HWA Care 06/30/17 06:51 Active Ready for Discharge [RC] PER UNIT ROUTINE Care 07/01/17 07:00 Active Up to Chair [RC] ASDIRECTED Care 06/30/17 06:52 Active Vital Signs [RC] Q15M Care 06/30/17 14:14 Inactive Vital Signs [RC] Q4HR Care 06/30/17 06:52 Active Consult to Physician [CONS] Routine Cons 06/30/17 06:52 Active OT Evaluation and Treatment [CONS] Routine Cons 06/30/17 06:51 Active PT Evaluation and Treatment [CONS] Routine Cons 06/30/17 06:51 Active Regular Diet [DIET] Diet 06/30/17 Lunch Active COMPREHENSIVE METABOLIC PN,CMP [CHEM] AM Lab 07/01/17 06:41 Received Acetaminophen/oxyCODONE [Percocet 325-5 MG] Med 06/30/17 06:51 Active 1 - 2 tab PO Q4H PRN Aspirin [Ecotrin] Med 07/01/17 09:00 Active 325 mg PO BID Bisacodyl [Dulcolax] Med 06/30/17 06:52 Active 5 mg PO DAILY PRN Cholecalciferol (Vitamin D3) [Vitamin D3] Med 07/01/17 09:00 Active 5,000 units PO DAILY Citalopram [Celexa] Med 07/01/17 09:00 Active 40 mg PO DAILY Cyclobenzaprine [Flexeril] Med 06/30/17 06:51 Active 10 mg PO TID PRN Docusate Sodium [Colace] Med 06/30/17 21:00 Active 100 mg PO BID Famotidine [Pepcid] Med 06/30/17 21:00 Active 20 mg PO Q12H Ketorolac [Toradol] Med 06/30/17 06:51 Active 15 mg IVPUSH Q6H PRN Magnesium Hydroxide [Milk of Magnesia] Med 06/30/17 06:52 Active 30 ml PO BID PRN Morphine Med 06/30/17 06:52 Active 2 mg IVPUSH Q2H PRN Naloxone [Narcan] Med 06/30/17 06:52 Active 0.1 mg IVPUSH Q5M PRN Ondansetron [Zofran] Med 06/30/17 06:52 Active 4 mg IVPUSH Q6H PRN Sennosides [Senna] Med 06/30/17 06:52 Active 8.6 mg PO BID PRN ceFAZolin [Ancef] 2 gm Med 06/30/17 18:30 Active Premix Bag 1 bag IV Q8H Antiembolic Hose [OM.PC] Per Unit Routine Oth 06/30/17 06:55 Ordered Ice Therapy [OM.PC] Per Unit Routine Oth 06/30/17 06:53 Ordered Sequential Compression Device [OM.PC] Per Unit Routine Oth 06/30/17 06:51 Ordered Resuscitation Status Routine Resus Stat 06/30/17 06:52 Ordered Medication Orders Aspirin (Ecotrin) 325 mg PO BID TSYON Bisacodyl (Dulcolax) 5 mg PO DAILY PRN PRN Reason: Constipation Cholecalciferol (Vitamin D3) 5,000 units PO DAILY [facility] Citalopram Hydrobromide (Celexa) 40 mg PO DAILY [facility] Cyclobenzaprine HCl (Flexeril) 10 mg PO TID PRN PRN Reason: Spasms Last Admin: 07/01/17 02:07 Dose: 10 mg Docusate Sodium (Colace) 100 mg PO BID [facility] Last Admin: 06/30/17 21:00 Dose: Not Given Famotidine (Pepcid) 20 mg PO Q12H [facility] Last Admin: 06/30/17 21:01 Dose: Not Given Cefazolin Sodium/Dextrose 2 gm (/ Premix) 50 mls @ 100 mls/hr IV Q8H [facility] Stop: 07/01/17 10:59 Last Admin: 07/01/17 01:56 Dose: 100 mls/hr Infusion: 06/30/17 18:01 Dose: 100 mls/hr Admin: 06/30/17 17:31 Dose: 100 mls/hr Ketorolac Tromethamine (Toradol) 15 mg IVPUSH Q6H PRN PRN Reason: Pain Last Admin: 06/30/17 21:02 Dose: 15 mg Magnesium Hydroxide (Milk Of Magnesia) 30 ml PO BID PRN PRN Reason: Constipation Morphine Sulfate (Morphine) 2 mg IVPUSH Q2H PRN PRN Reason: Breakthrough Pain Naloxone HCl (Narcan) 0.1 mg IVPUSH Q5M PRN PRN Reason: Oversedation Ondansetron HCl (Zofran) 4 mg IVPUSH Q6H PRN PRN Reason: Nausea/Vomiting Oxycodone/Acetaminophen (Percocet 325-5 Mg) 1 - 2 tab PO Q4H PRN PRN Reason: Pain Last Admin: 07/01/17 02:07 Dose: 2 tab Admin: 06/30/17 21:01 Dose: 2 tab Admin: 06/30/17 14:25 Dose: 1 tab Senna (Senna) 8.6 mg PO BID PRN PRN Reason: Constipation - Assessment Assessment (Free Text/Narrative):: POD#1 - left TKA - Plan Plan (Free Text/Narrative):: 1. Discharge to home today. 2. ASA 325mg PO BID, frequent mobility, SCDs, TEDs. 3. Outpatient P.T. 4. Further orders per Hospitalist service. 5. Hgb 9.3. The pt's case was discussed with Dr. Duong today.
--- NOTE | 2017-07-01 08:51 | PCM.CONSN ---
- General Info Date of Service: 07/01/17 Admission Dx/Problem (Free Text): Admission Diagnosis/Problem Admission Diagnosis/Problem Osteoarthritis of knee S/P Lt TKA, POD #1. Doing well, pain controlled, no nausea. VSS on RA. Functional Status: Reports: Pain Controlled, Tolerating Diet, Ambulating, Urinating, Incentive Spirometry. Denies: New Symptoms - Review of Systems General: Reports: No Symptoms HEENT: Reports: No Symptoms Pulmonary: Reports: No Symptoms Cardiovascular: Reports: No Symptoms Gastrointestinal: Reports: No Symptoms Genitourinary: Reports: No Symptoms Musculoskeletal: Reports: Leg Pain Skin: Reports: No Symptoms Neurological: Reports: No Symptoms Psychiatric: Reports: No Symptoms - Patient Data Vitals - Most Recent: Last Vital Signs Temp 98.1 F 07/01/17 03:25 Pulse 62 07/01/17 03:25 Resp 19 07/01/17 03:25 BP 123/74 07/01/17 03:25 Pulse Ox 98 07/01/17 03:25 Weight - Most Recent: 150 lb 4.8 oz I&O - Last 24 Hours: Intake & Output 06/30/17 07/01/17 07/01/17 22:59 06:59 14:59 Intake Total 345 550 Output Total 325 2300 Balance 20 -1750 Lab Results Last 24 Hours: Laboratory Results - last 24 hr 07/01/17 07/01/17 Range/Units 06:41 06:41 WBC 10.63 H (3.98-10.04) K/mm3 RBC 2.96 L (3.98-5.22) M/mm3 Hgb 9.3 L (11.2-15.7) gm/L Hct 29.2 L (34.1-44.9) % MCV 98.6 H (79.4-94.8) fl MCH 31.4 (25.6-32.2) pg MCHC 31.8 L (32.2-35.5) g/dl RDW Std Deviation 42.6 (36.4-46.3) fL Plt Count 177 L (182-369) K/mm3 MPV 11.2 (9.4-12.3) fl Sodium 138 (136-145) mEq/L Potassium 4.0 (3.5-5.1) mEq/L Chloride 103 (98-107) mEq/L Carbon Dioxide 29 (21-32) mEq/L Anion Gap 10.0 (5-15) BUN 7 (7-18) mg/dL Creatinine 0.6 (0.55-1.02) mg/dL Est Cr Clr Drug Dosing 101.17 mL/min Estimated GFR (MDRD) > 60 (>60) mL/min BUN/Creatinine Ratio 11.7 L (14-18) Glucose 105 (74-106) mg/dL Calcium 8.5 (8.5-10.1) mg/dL Total Bilirubin 0.6 (0.2-1.0) mg/dL AST 11 L (15-37) U/L ALT 18 (14-59) U/L Alkaline Phosphatase 46 (46-116) U/L Total Protein 5.5 L (6.4-8.2) g/dl Albumin 2.8 L (3.4-5.0) g/dl Globulin 2.7 gm/dL Albumin/Globulin Ratio 1.0 (1-2) Med Orders - Current: Current Medications Aspirin (Ecotrin) 325 mg PO BID [facility] Bisacodyl (Dulcolax) 5 mg PO DAILY PRN PRN Reason: Constipation Cholecalciferol (Vitamin D3) 5,000 units PO DAILY [facility] Citalopram Hydrobromide (Celexa) 40 mg PO DAILY [facility] Cyclobenzaprine HCl (Flexeril) 10 mg PO TID PRN PRN Reason: Spasms Last Admin: 07/01/17 02:07 Dose: 10 mg Docusate Sodium (Colace) 100 mg PO BID [facility] Last Admin: 06/30/17 21:00 Dose: Not Given Famotidine (Pepcid) 20 mg PO Q12H [facility] Last Admin: 06/30/17 21:01 Dose: Not Given Cefazolin Sodium/Dextrose 2 gm (/ Premix) 50 mls @ 100 mls/hr IV Q8H [facility] Stop: 07/01/17 10:59 Last Admin: 07/01/17 01:56 Dose: 100 mls/hr Ketorolac Tromethamine (Toradol) 15 mg IVPUSH Q6H PRN PRN Reason: Pain Last Admin: 06/30/17 21:02 Dose: 15 mg Magnesium Hydroxide (Milk Of Magnesia) 30 ml PO BID PRN PRN Reason: Constipation Morphine Sulfate (Morphine) 2 mg IVPUSH Q2H PRN PRN Reason: Breakthrough Pain Naloxone HCl (Narcan) 0.1 mg IVPUSH Q5M PRN PRN Reason: Oversedation Ondansetron HCl (Zofran) 4 mg IVPUSH Q6H PRN PRN Reason: Nausea/Vomiting Oxycodone/Acetaminophen (Percocet 325-5 Mg) 1 - 2 tab PO Q4H PRN PRN Reason: Pain Last Admin: 07/01/17 02:07 Dose: 2 tab Senna (Senna) 8.6 mg PO BID PRN PRN Reason: Constipation Discontinued Medications Bupivacaine HCl (Marcaine 0.25%) Confirm Administered Dose 30 ml .ROUTE .STK- MED ONE Stop: 06/30/17 10:24 Last Admin: 06/30/17 13:30 Dose: 30 ml Cefazolin Sodium (Ancef) Confirm Administered Dose 2 gm .ROUTE .STK-MED ONE Stop: 06/30/17 08:23 Last Admin: 06/30/17 13:24 Dose: 2 gm Cefazolin Sodium (Ancef) Confirm Administered Dose 2 gm .ROUTE .STK-MED ONE Stop: 06/30/17 10:24 Morphine Sulfate 8 mg/Epinephrine HCl 0.3 mg/Cefuroxime Sodium 750 mg/Ketorolac Tromethamine 30 mg/Sodium Chloride 27.9 ml 0 mg .XX ONETIME ONE Stop: 06/30/17 12:01 Last Admin: 06/30/17 13:30 Dose: 788.3 mg Dexamethasone (Dexamethasone) Confirm Administered Dose 20 mg .ROUTE .STK-MED ONE Stop: 06/30/17 08:23 Diphenhydramine HCl (Benadryl) 25 mg IVPUSH Q4H PRN PRN Reason: Nausea Diphenhydramine HCl (Benadryl) 25 mg IVPUSH Q6H PRN PRN Reason: Pruritis Stop: 06/30/17 18:00 Epinephrine HCl (Adrenalin) Confirm Administered Dose 1 mg .ROUTE .STK-MED ONE Stop: 06/30/17 10:35 Fentanyl (Sublimaze) Confirm Administered Dose 100 mcg .ROUTE .STK-MED ONE Stop: 06/30/17 08:24 Fentanyl (Sublimaze) 50 mcg IVPUSH Q5M PRN PRN Reason: Pain Stop: 06/30/17 16:00 Last Admin: 06/30/17 14:40 Dose: 50 mcg Hydromorphone HCl (Dilaudid) 0.5 mg IVPUSH ASDIRECTED PRN PRN Reason: Severe Pain Stop: 06/30/17 16:00 Lactated Ringer's (Ringers, Lactated) 1,000 mls @ 125 mls/hr IV ASDIRECTED TYSON Stop: 06/30/17 23:00 Last Admin: 06/30/17 10:10 Dose: 125 mls/hr Lidocaine HCl (Xylocaine-Mpf 1%) Confirm Administered Dose 6 mls @ as directed .ROUTE .STK-MED ONE Stop: 06/30/17 08:23 Acetaminophen (Ofirmev) 100 mls @ 400 mls/hr IV NOW ONE Stop: 06/30/17 10:04 Last Admin: 06/30/17 20:02 Dose: Not Given Iodine (Iodine 2% Mild Tincture) Confirm Administered Dose 30 ml .ROUTE .STK- MED ONE Stop: 06/30/17 10:24 Last Admin: 06/30/17 13:22 Dose: 18 ml Ketorolac Tromethamine (Toradol) Confirm Administered Dose 30 mg .ROUTE .STK- MED ONE Stop: 06/30/17 08:23 Lidocaine/Sodium Bicarbonate (Buffered Lidocaine 1% In Ns 8.4%) 0.25 ml IDERM ONETIME PRN PRN Reason: Prior to IV Start Stop: 06/30/17 18:00 Last Admin: 06/30/17 10:10 Dose: 0.25 ml Midazolam HCl (Versed 1 Mg/Ml) Confirm Administered Dose 2 mg .ROUTE .STK-MED ONE Stop: 06/30/17 08:24 Midazolam HCl (Versed 1 Mg/Ml) 2 mg IVPUSH ONETIME PRN PRN Reason: Sedation Stop: 06/30/17 16:00 Morphine Sulfate (Duramorph Pf) Confirm Administered Dose 10 mg .ROUTE .STK-MED ONE Stop: 06/30/17 08:24 Ondansetron HCl (Zofran) Confirm Administered Dose 4 mg .ROUTE .STK-MED ONE Stop: 06/30/17 08:23 Oxycodone HCl (Oxycontin) 10 mg PO ONETIME ONE Stop: 06/30/17 10:01 Last Admin: 06/30/17 10:34 Dose: 10 mg Pregabalin (Lyrica) 50 mg PO ONETIME ONE Stop: 06/30/17 10:01 Last Admin: 06/30/17 10:34 Dose: 50 mg Propofol (Diprivan 20 Ml) Confirm Administered Dose 400 mg .ROUTE .STK-MED ONE Stop: 06/30/17 08:23 Propofol (Diprivan 20 Ml) Confirm Administered Dose 200 mg .ROUTE .STK-MED ONE Stop: 06/30/17 08:40 Propofol (Diprivan 20 Ml) Confirm Administered Dose 200 mg .ROUTE .STK-MED ONE Stop: 06/30/17 13:46 Ropivacaine (Naropin 0.5%) Confirm Administered Dose 30 ml .ROUTE .STK-MED ONE Stop: 06/30/17 10:35 Sodium Chloride (Saline Flush) 10 ml FLUSH ASDIRECTED PRN PRN Reason: Keep Vein Open Stop: 06/30/17 18:00 Tranexamic Acid (Cyklokapron) Confirm Administered Dose 1,000 mg .ROUTE .STK- MED ONE Stop: 06/30/17 10:24 Last Admin: 06/30/17 13:36 Dose: 1,000 mg Vancomycin HCl (Vancomycin) Confirm Administered Dose 1 gm .ROUTE .STK-MED ONE Stop: 06/30/17 10:24 Last Admin: 06/30/17 13:31 Dose: 1 gm - Exam Quality Assessment: DVT Prophylaxis General: Alert, Oriented, Cooperative, No Acute Distress HEENT: Pupils Equal, EOMI, Mucous Membr. Moist/[place] Neck: Supple Lungs: Clear to Auscultation, Normal Respiratory Effort Cardiovascular: Regular Rate, Regular Rhythm GI/Abdominal Exam: Normal Bowel Sounds, Soft, Non-Tender (Female) Exam: Deferred Extremities: Other (teds, ice, SCD's) Peripheral Pulses: 2+: Dorsalis Pedis (L), Dorsalis Pedis (R) Neurological: No New Focal Deficit Psy/Mental Status: Alert, Normal Affect, Normal Mood Consult PN Assessment/Plan POD#: 1 Procedures: Procedures ASSAY OF FREE THYROXINE (01/08/14) ASSAY OF PREALBUMIN (06/08/17) ASSAY THYROID STIM HORMONE (01/08/14) C-REACTIVE PROTEIN (10/21/16) COMPLETE CBC AUTOMATED (01/27/16) COMPLETE CBC W/AUTO DIFF WBC (06/08/17) COMPREHEN METABOLIC PANEL (06/08/17) EMERGENCY DEPT VISIT (06/15/17) FLUOROSCOPY <1 HR PHYS/QHP (07/15/16) INCISION OF TOE TENDON (07/15/16) METABOLIC PANEL TOTAL CA (10/21/16) MR-STAPH DNA AMP PROBE (07/15/16) PART REMOVAL OF METATARSAL (07/15/16) PROTHROMBIN TIME (06/08/17) RBC SED RATE AUTOMATED (10/21/16) RHEUMATOID FACTOR TEST QUAL (01/27/16) ROUTINE VENIPUNCTURE (06/08/17) THROMBOPLASTIN TIME PARTIAL (06/08/17) TISSUE EXAM BY PATHOLOGIST (01/28/14) TRANSVAGINAL US NON-OB (05/10/17) URINALYSIS AUTO W/O SCOPE (07/13/16) URINALYSIS AUTO W/SCOPE (06/08/17) URINE TEST (07/15/16) X-RAY EXAM CHEST 2 VIEWS (06/08/17) X-RAY EXAM OF FINGER(S) (08/21/15) X-RAY EXAM OF SHOULDER (06/15/17) (1) Osteoarthritis SNOMED Code(s): 707469111 Code(s): M19.90 - UNSPECIFIED OSTEOARTHRITIS, UNSPECIFIED SITE Priority: High Current Visit: Yes Qualifiers: Osteoarthritis location: knee Osteoarthritis type: primary Laterality: left Qualified Code(s): M17.12 - Unilateral primary osteoarthritis, left knee (2) S/P total knee arthroplasty SNOMED Code(s): 4476604788499, 8769210241562 Code(s): Z96.659 - PRESENCE OF UNSPECIFIED ARTIFICIAL KNEE JOINT Priority: High Current Visit: Yes Qualifiers: Laterality: left Qualified Code(s): Z96.652 - Presence of left artificial knee joint Problem List Initiated/Reviewed/Updated: Yes Plan: I/P: Acute: S/P left total knee arthroplasty - post-operative day 1 -DVT prophylaxis and pain management per primary care team -PT/OT -IS/RT -Vital signs stable -Monitor labs -Pre-operative Hgb was 13.5--> 9.3 Osteoarthritis of left knee -Pain management per primary care team Mild QT prolongation on preoperative EKG -Telemetry-no concerns. 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 GI prophylaxis Home medications as indicated Other orders as listed above Routine AM labs She is a full code. Her PCP is Charlene Eugene PA-C at [facility]
[2017-07-01] MEDS ORDERED: Citalopram 20 MG Tab PO SCH (09:00)
[2017-07-01] MEDS ORDERED: Cholecalciferol (Vitamin D3) 1,000 Unit Tab PO SCH (09:00)
[2017-07-01] MEDS ORDERED: Aspirin 325 MG Tab.EC PO SCH (09:00)
[2017-07-01] MEDS: Docusate Sodium 100 MG Cap PO SCH (09:11)
[2017-07-01] MEDS: Famotidine 20 MG Tab PO SCH (09:11)
--- NOTE | 2017-07-01 09:20 | PCM48HPAN ---
Post Anesthesia Note - EVALUATION WITHIN 48HRS OF ANESTHETIC Vital Signs in Normal Range: Yes Patient Participated in Evaluation: Yes Respiratory Function Stable: Yes Airway Patent: Yes Cardiovascular Function Stable: Yes Hydration Status Stable: Yes Pain Control Satisfactory: Yes Nausea and Vomiting Control Satisfactory: Yes Mental Status Recovered: Yes
[2017-07-01 12:52] VITALS: BP 112/77
--- NOTE | 2017-07-03 11:44 | PCM.DCSUM1 ---
Discharge Summary - Hospital Course Brief History: Rand is a 47 yo female who underwent left TKA with Dr. Duong on . The procedure was completed under spinal anesthesia with MAC. The pt tolerated the procedure well and was admitted to the Medical-Surgical Unit. The pt received Ancef bertrand-operatively. She participated in P.T. and O.T. and progressed well. She was allowed to WBAT and used a FWW for mobility. The pt' s surgical wound was dressed with a Mepilex dressing and remained clean and dry. On POD#1, the pt was started on 325mg ASA BID for VTE prophylaxis. The pt used TEDs and SCDs also. On POD#1, the pt's hemoglobin was 9.3. Medical management was provided by the Hospitalist service and the pt's hospital course was uneventful. On POD#1, the pt was deemed appropriate for discharge to home. - Discharge Data Discharge Date: 07/01/17 Discharge Disposition: Home, Self-Care 01 Condition: Good - Patient Summary/Data Consults: Consultations 06/30/17 06:51 OT Evaluation and Treatment [CONS] Routine PT Evaluation and Treatment [CONS] Routine 06/30/17 06:52 Consult to Physician [CONS] Routine - Patient Instructions Diet: Usual Diet as Tolerated Activity: Apply Ice, As Tolerated, Elevate Extremity, Full Weight Bearing Driving: Do Not Drive Showering/Bathing: May Shower Wound/Incision Care: Keep Operative Site/Wound Site Clean and Dry, Do NOT Change Dressing Notify Provider of: Fever, Increased Pain, Swelling and Redness, Drainage, Nausea and/or Vomiting Other/Special Instructions: Please get up and moving around EVERY HOUR while awake. This helps to prevent blood clots. Please take 325mg ASPIRIN TWICE DAILY - this also helps to prevent blood clots. The medication is being used for blood clot prevention and not for pain control, so please use the medication twice daily as directed. Please wear the ANJU hose during the day and you may remove them at night. Please schedule for P.T. Complete the P.T. exercises and stretches that were instructed in the Hospital. Please use the pain medication and muscle relaxant as needed. The medication may cause drowsiness and/or constipation. You could use a stool softener like docusate sodium or Colace 100mg twice daily and/or a laxative like Miralax daily for constipation. Contact your primary care provider for further instructions if you are constipated. Try to wean from use of the pain medication as soon as able. Use the incentive spirometer often. Please place ice to the knee often. Please elevate the limb to decrease swelling. Keep the Mepilex dressing in place until follow-up. Please call [phone] with questions or concerns. - Discharge Plan Prescriptions/Med Rec: Acetaminophen/oxyCODONE [Percocet 325-5 MG] 1 - 2 tab PO Q6H PRN #60 tab PRN Reason: Pain Aspirin [Aspirin EC] 325 mg PO BID 42 Days tablet. Cyclobenzaprine [Flexeril] 10 mg PO TID PRN #40 tablet PRN Reason: Spasms Cyclobenzaprine [Flexeril] 10 mg PO Q8H PRN #1 tab PRN Reason: muscle spasm Home Medications: Home Meds Citalopram Hydrobromide [Celexa] 40 mg PO DAILY 07/14/16 [History] Cholecalciferol (Vitamin D3) [Vitamin D3] 5,000 unit PO DAILY 06/29/17 [History] Acetaminophen [Tylenol Extra Strength] 1,000 mg PO Q6H PRN #0 07/01/17 [Rx] Acetaminophen/oxyCODONE [Percocet 325-5 MG] 1 - 2 tab PO Q6H PRN #60 tab [Rx] Aspirin [Aspirin EC] 325 mg PO BID 42 Days tablet. 07/01/17 [Rx] Cyclobenzaprine [Flexeril] 10 mg PO Q8H PRN #1 tab 07/01/17 [Rx] Cyclobenzaprine [Flexeril] 10 mg PO TID PRN #40 tablet 07/01/17 [Rx] Docusate Sodium [Colace] 100 mg PO BID cap 07/01/17 [Rx] Famotidine [Pepcid] 20 mg PO Q12H tablet 07/01/17 [Rx] Magnesium Hydroxide [Milk of Magnesia] 30 ml PO BID PRN cup 07/01/17 [Rx] Sennosides [Senna] 8.6 mg PO BID PRN tablet 07/01/17 [Rx] Patient Handouts: Total Knee Replacement, Care After, [id number] Referrals: Charlene Eugene PA-C [Primary Care Provider] - (Please make appointment for post surgical care within 1-2 weeks.) Bobbi Alfaro PA-C [Physician [employer]iance [employer]] - 07/06/17 2:00 pm - Patient Data Vitals - Most Recent: Last Vital Signs Temp 98.1 F 07/01/17 11:57 Pulse 60 07/01/17 07:54 Resp 18 07/01/17 11:57 BP 112/77 07/01/17 11:57 Pulse Ox 97 07/01/17 07:54 Weight - Most Recent: 150 lb 4.8 oz Med Orders - Current: Current Medications Discontinued Medications Aspirin (Ecotrin) 325 mg PO BID [facility] Last Admin: 07/01/17 09:11 Dose: 325 mg Bisacodyl (Dulcolax) 5 mg PO DAILY PRN PRN Reason: Constipation Bupivacaine HCl (Marcaine 0.25%) Confirm Administered Dose 30 ml .ROUTE .STK- MED ONE Stop: 06/30/17 10:24 Last Admin: 06/30/17 13:30 Dose: 30 ml Cefazolin Sodium (Ancef) Confirm Administered Dose 2 gm .ROUTE .STK-MED ONE Stop: 06/30/17 08:23 Last Admin: 06/30/17 13:24 Dose: 2 gm Cefazolin Sodium (Ancef) Confirm Administered Dose 2 gm .ROUTE .STK-MED ONE Stop: 06/30/17 10:24 Cholecalciferol (Vitamin D3) 5,000 units PO DAILY [facility] Last Admin: 07/01/17 09:12 Dose: 5,000 units Citalopram Hydrobromide (Celexa) 40 mg PO DAILY [facility] Last Admin: 07/01/17 09:11 Dose: 40 mg Morphine Sulfate 8 mg/Epinephrine HCl 0.3 mg/Cefuroxime Sodium 750 mg/Ketorolac Tromethamine 30 mg/Sodium Chloride 27.9 ml 0 mg .XX ONETIME ONE Stop: 06/30/17 12:01 Last Admin: 06/30/17 13:30 Dose: 788.3 mg Cyclobenzaprine HCl (Flexeril) 10 mg PO TID PRN PRN Reason: Spasms Last Admin: 07/01/17 02:07 Dose: 10 mg Dexamethasone (Dexamethasone) Confirm Administered Dose 20 mg .ROUTE .STK-MED ONE Stop: 06/30/17 08:23 Diphenhydramine HCl (Benadryl) 25 mg IVPUSH Q4H PRN PRN Reason: Nausea Diphenhydramine HCl (Benadryl) 25 mg IVPUSH Q6H PRN PRN Reason: Pruritis Stop: 06/30/17 18:00 Docusate Sodium (Colace) 100 mg PO BID [facility] Last Admin: 07/01/17 09:11 Dose: 100 mg Epinephrine HCl (Adrenalin) Confirm Administered Dose 1 mg .ROUTE .STK-MED ONE Stop: 06/30/17 10:35 Famotidine (Pepcid) 20 mg PO Q12H [facility] Last Admin: 07/01/17 09:11 Dose: 20 mg Fentanyl (Sublimaze) Confirm Administered Dose 100 mcg .ROUTE .STK-MED ONE Stop: 06/30/17 08:24 Fentanyl (Sublimaze) 50 mcg IVPUSH Q5M PRN PRN Reason: Pain Stop: 06/30/17 16:00 Last Admin: 06/30/17 14:40 Dose: 50 mcg Hydromorphone HCl (Dilaudid) 0.5 mg IVPUSH ASDIRECTED PRN PRN Reason: Severe Pain Stop: 06/30/17 16:00 Lactated Ringer's (Ringers, Lactated) 1,000 mls @ 125 mls/hr IV ASDIRECTED [facility]YSON Stop: 06/30/17 23:00 Last Admin: 06/30/17 10:10 Dose: 125 mls/hr Cefazolin Sodium/Dextrose 2 gm (/ Premix) 50 mls @ 100 mls/hr IV Q8H [facility] Stop: 07/01/17 10:59 Last Admin: 07/01/17 10:40 Dose: 100 mls/hr Lidocaine HCl (Xylocaine-Mpf 1%) Confirm Administered Dose 6 mls @ as directed .ROUTE .STK-MED ONE Stop: 06/30/17 08:23 Acetaminophen (Ofirmev) 100 mls @ 400 mls/hr IV NOW ONE Stop: 06/30/17 10:04 Last Admin: 06/30/17 20:02 Dose: Not Given Iodine (Iodine 2% Mild Tincture) Confirm Administered Dose 30 ml .ROUTE .STK- MED ONE Stop: 06/30/17 10:24 Last Admin: 06/30/17 13:22 Dose: 18 ml Ketorolac Tromethamine (Toradol) 15 mg IVPUSH Q6H PRN PRN Reason: Pain Last Admin: 06/30/17 21:02 Dose: 15 mg Ketorolac Tromethamine (Toradol) Confirm Administered Dose 30 mg .ROUTE .STK- MED ONE Stop: 06/30/17 08:23 Lidocaine/Sodium Bicarbonate (Buffered Lidocaine 1% In Ns 8.4%) 0.25 ml IDERM ONETIME PRN PRN Reason: Prior to IV Start Stop: 06/30/17 18:00 Last Admin: 06/30/17 10:10 Dose: 0.25 ml Magnesium Hydroxide (Milk Of Magnesia) 30 ml PO BID PRN PRN Reason: Constipation Midazolam HCl (Versed 1 Mg/Ml) Confirm Administered Dose 2 mg .ROUTE .STK-MED ONE Stop: 06/30/17 08:24 Midazolam HCl (Versed 1 Mg/Ml) 2 mg IVPUSH ONETIME PRN PRN Reason: Sedation Stop: 06/30/17 16:00 Morphine Sulfate (Morphine) 2 mg IVPUSH Q2H PRN PRN Reason: Breakthrough Pain Morphine Sulfate (Duramorph Pf) Confirm Administered Dose 10 mg .ROUTE .STK-MED ONE Stop: 06/30/17 08:24 Naloxone HCl (Narcan) 0.1 mg IVPUSH Q5M PRN PRN Reason: Oversedation Ondansetron HCl (Zofran) 4 mg IVPUSH Q6H PRN PRN Reason: Nausea/Vomiting Ondansetron HCl (Zofran) Confirm Administered Dose 4 mg .ROUTE .STK-MED ONE Stop: 06/30/17 08:23 Oxycodone HCl (Oxycontin) 10 mg PO ONETIME ONE Stop: 06/30/17 10:01 Last Admin: 06/30/17 10:34 Dose: 10 mg Oxycodone/Acetaminophen (Percocet 325-5 Mg) 1 - 2 tab PO Q4H PRN PRN Reason: Pain Last Admin: 07/01/17 12:52 Dose: 2 tab Pregabalin (Lyrica) 50 mg PO ONETIME ONE Stop: 06/30/17 10:01 Last Admin: 06/30/17 10:34 Dose: 50 mg Propofol (Diprivan 20 Ml) Confirm Administered Dose 400 mg .ROUTE .STK-MED ONE Stop: 06/30/17 08:23 Propofol (Diprivan 20 Ml) Confirm Administered Dose 200 mg .ROUTE .STK-MED ONE Stop: 06/30/17 08:40 Propofol (Diprivan 20 Ml) Confirm Administered Dose 200 mg .ROUTE .STK-MED ONE Stop: 06/30/17 13:46 Ropivacaine (Naropin 0.5%) Confirm Administered Dose 30 ml .ROUTE .STK-MED ONE Stop: 06/30/17 10:35 Senna (Senna) 8.6 mg PO BID PRN PRN Reason: Constipation Sodium Chloride (Saline Flush) 10 ml FLUSH ASDIRECTED PRN PRN Reason: Keep Vein Open Stop: 06/30/17 18:00 Tranexamic Acid (Cyklokapron) Confirm Administered Dose 1,000 mg .ROUTE .STK- MED ONE Stop: 06/30/17 10:24 Last Admin: 06/30/17 13:36 Dose: 1,000 mg Vancomycin HCl (Vancomycin) Confirm Administered Dose 1 gm .ROUTE .STK-MED ONE Stop: 06/30/17 10:24 Last Admin: 06/30/17 13:31 Dose: 1 gm *Q Meaningful Use (DIS) - VTE *Q VTE Criteria *Q: - Stroke *Q Stroke Criteria *Q: - AMI *Q AMI Criteria *Q:
--- NOTE | 2017-07-06 22:00 | PCM.OPNOTE ---
- General Post-Op/Procedure Note Date of Surgery/Procedure: 06/30/17 Operative Procedure(s): left total knee arthroplasty Pre Op Diagnosis: left knee osteoarthrosis Post-Op Diagnosis: Same Anesthesia Technique: Local, MAC, Spinal Primary Surgeon: Gilberto Duong Anesthesia Provider: Portia Lara [employer] Supervisor: Bobbi Alfaro [employer] Supervisor: Zaira Luna EBBhaskar in mLs: 75 Complications: None Condition: Good
--- NOTE | 2017-07-06 22:31 | OR ---
DATE OF OPERATION: 06/30/2017 SURGEON: Gilberto Duong MD OPERATION PERFORMED: Left total knee arthroplasty. PREOPERATIVE DIAGNOSIS: Left knee osteoarthrosis. POSTOPERATIVE DIAGNOSIS: Left knee osteoarthrosis. ANESTHESIA: Local MAC with spinal. ANESTHESIA PROVIDER: Christina Martin. SURVEYING CREW RODMAN: Bobbi Alfaro PA-C; and Zaira Luna LPN. ESTIMATED BLOOD LOSS: 75 mL. COMPLICATIONS: None. CONDITION: Stable. IMPLANTS: 1. [place] size 5 press-fit CR femur. 2. Jon size 5, 9 mm CS polyethylene. 3. [place] size 4 press-fit tibial baseplate. 4. [place] size 32 x 10 mm asymmetric press-fit patella. DESCRIPTION OF PROCEDURE: The patient was identified in the preop holding area. Proper site was marked and identified by the surgeon. The patient was taken back to the operating theater. After adequate anesthesia, the patient's left lower extremity had a nonsterile tourniquet applied and it was then sterilely prepped and draped in the usual sterile fashion. OR timeout was performed. The patient received 2 g IV Ancef. At this time, left lower extremity was exsanguinated. Tourniquet was insufflated to 300 mmHg. Standard medial parapatellar incision was made. Medial parapatellar arthrotomy was created. Deep fibers of the MCL were raised and anterior fat pad was resected. At this time, attention was turned to the patella. Patella measured 22, it was resected to a 13 for a 32 x 10 mm patella. Drill holes were then drilled and found to be in adequate position. The drill was then drilled in the distal femur and the intramedullary distal femoral cutting guide was then placed. 8 mm was resected off the distal femur and was found to be an adequate resection. Sizing guide was placed. It was found to be a size 5 press-fit CR femur that was shown on the implant record at the beginning of this dictation. The drill holes were drilled for the epicondylar axis using [place] line and epicondyles as reference. At this time, the 4-in - 1 cutting block was placed. An anterior posterior and anterior and posterior chamfer cuts were then completed. The correct size box cut was then placed and the box cut was completed and found to be an adequate resection. Attention was turned to the tibia. The posterior medial lateral retractors were placed. The extramedullary tibial guide was placed. It was placed in the old footprint of the ACL. It was aligned with the center of the ankle and 0 degrees of slope, 9 mm was then resected off the unaffected lateral side. There was found to be an acceptable reduction. At this time, posterior osteophytes were removed along with medial and lateral meniscus. A trial implant was placed with a correct sized tibia that was mentioned at the beginning of the dictation. A size 5, 9 mm CS polyethylene trial was then placed. The patient's knee was brought through range of motion. The patella was tracking centrally and was stable to varus and valgus stress. Alignment was found to be roughly at 0 degrees. The tibia was stamped and drilled in proper rotation. The universal tibial base plate was impacted into place. Next, the size 5 press-fit CR femur was impacted into place and the size 5, 9 mm CS polyethylene was placed. The patient's knee was brought into full extension. The patella was then press-fit in place at this time. Tourniquet was deflated. One liter dilute Betadine solution was irrigated through the knee along with 3 L of pulse lavage irrigation with Ancef. Periarticular injection was then completed. The patient's knee was brought through a range of motion. Knee was found to be stable to varus valgus stress, the patella was tracking centrally with full range of motion. At this time, a #2 barbed suture was used for closure of the medial parapatellar arthrotomy. Topical tranexamic acid was placed. 2-0 Vicryl was used subcutaneously, a running 3-0 Monocryl was used subcuticularly. The patient tolerated the procedure well and was sent to the PACU in stable condition. MMODAL /[id number] CAITLYN
== END 2017-07-01 13:25 | disposition home or self-care (01) | DRG 470 ==
LOC: EDSTATUS 06-30 08:45 → JD.MS 06-30 09:33
PROVIDERS: ADMIT Orthopaedic Surgery; ATTEND Orthopaedic Surgery
PROC: 0SRD0J9 Replacement of Left Knee Joint with Synthetic Substitute, Cemented, Open Approach (ICD-10-PCS; principal; 2017-06-30)
DX: M17.12 Unilateral primary osteoarthritis, left knee (principal); F32.9 Major depressive disorder, single episode, unspecified; F41.9 Anxiety disorder, unspecified; I45.81 Long QT syndrome; Z87.891 Personal history of nicotine dependence; Z79.899 Other long term (current) drug therapy
CPT/HCPCS: 01402; 36415; 64450; 73560-26-LT; 73560-LT; 80053; 85027; 87641; 97110-GP; 97116-GP; 97162-GP; 97165-GO; 97535-GO; A9270-GY; C1776; J0171; J0690; J0697; J1100; J1885; J2250; J2270; J2405; J2704; J2795; J3010; J3370; J3490; J7120

== ENCOUNTER 2017-09-23 12:13 | Emergency (ER) | payer OTHER ==
[2017-09-23] MEDS ORDERED: Sodium Chloride 0.9% 10 ML Syringe FLUSH PRN (12:23)
[2017-09-23 12:32] VITALS: BP 130/98
--- NOTE | 2017-09-23 13:11 | EDM.PDOC ---
ED HPI GENERAL MEDICAL PROBLEM - General Chief Complaint: Neuro Symptoms/Deficits Stated Complaint: FALLING TROUBLE SPEAKING Time Seen by Provider: 09/23/17 12:22 Source of Information: Reports: Patient History Limitations: Reports: Other (aphasia) - History of Present Illness INITIAL COMMENTS - FREE TEXT/NARRATIVE: 47 y/o F presents with difficulty speaking and R upper and lower extremity weakness. She is having a hard time speaking which limits the history. Per patient's sister,she was last known well several days ago. Today her sister accompanied her to her orthopedics follow-up appointment today. Staff at her appointment noticed that she was having trouble speaking and moving her R arm and R leg so sent her here for further eval. Unable to get further history at this time due to language barrier. 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 07/01/17 [Rx] Docusate Sodium [Colace] 100 mg PO BID cap 07/01/17 [Rx] Famotidine [Pepcid] 20 mg PO Q12H tablet 07/01/17 [Rx] Magnesium Hydroxide [Milk of Magnesia] 30 ml PO BID PRN cup 07/01/17 [Rx] Sennosides [Senna] 8.6 mg PO BID PRN tablet 07/01/17 [Rx] Cyclobenzaprine [Flexeril] 10 mg PO Q6HR PRN 09/23/17 [History] Cyclobenzaprine [Flexeril] 30 mg PO TID PRN 09/23/17 [History] Past Medical History HEENT History: Reports: Allergic Rhinitis, Other (See Below) Other HEENT History: wears glasses Cardiovascular History: Reports: None Respiratory History: Reports: None Gastrointestinal History: Reports: None Genitourinary History: Reports: None 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 OPERATIONS ANALYST History: Reports: , Spontaneous Musculoskeletal History: Reports: Arthritis, Other (See Below) Other Musculoskeletal History: 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, degenerative joint pain Neurological History: Reports: Seizure, Other (See Below) Other Neuro History: epilepsy as a child, states she grew out of it around the age of 13 Psychiatric History: Reports: Anxiety, Depression Endocrine/Metabolic History: Reports: None Hematologic History: Reports: Other (See Below) Other Hematologic History: erythrocytopenia, cryofibrinogenemia Immunologic History: Reports: None Oncologic (Cancer) History: Reports: None Dermatologic History: Reports: Other (See Below) Other Dermatologic History: acne, mixed cryofibrinogenemia - Past Surgical History Head Surgeries/Procedures: Reports: None Cardiovascular Surgical History: Reports: None Respiratory Surgical History: Reports: None GI Surgical History: Reports: None Female Surgical History: Reports: Cervical Cryotherapy, Tubal Ligation Other Female Surgeries/Procedures: dysmenorrhea, menorrhagia, pre mentstural dyspohric disorder, thickened endometrium Endocrine Surgical History: Reports: None Neurological Surgical History: Reports: None Musculoskeletal Surgical History: Reports: Other (See Below) Other Musculoskeletal Surgeries/Procedures:: bilateral foot surgery, knee surgery Oncologic Surgical History: Reports: None Dermatological Surgical History: Reports: None Social & Family History - Family History Family Medical History: Noncontributory - Tobacco Use Smoking Status *Q: Former Smoker Used Tobacco, but Quit: Yes Month/Year Tobacco Last Used: 28 y r - Caffeine Use Caffeine Use: Reports: Coffee - Recreational Drug Use Recreational Drug Use: No ED ROS GENERAL - Review of Systems Review Of Systems: Unable To Obtain ED EXAM, NEURO - Physical Exam Exam: See Below Exam Limited By: Altered Mental Status General Appearance: Alert, WD/WN, Anxious, Other (tearful) Eye Exam: Bilateral Eye: EOMI, Normal Inspection, PERRL Ears: Normal External Exam Nose: Normal Inspection Throat/Mouth: Normal Inspection, Normal Oropharynx, No Airway Compromise Head Exam: Atraumatic, Normocephalic Neck: Normal Inspection, Supple, Non-Tender, Full Range of Motion Respiratory/Chest: No Respiratory Distress, Lungs Clear, Normal Breath Sounds, Chest Non-Tender Cardiovascular: Normal Peripheral Pulses, Regular Rate, Rhythm, No Edema, No Murmur GI/Abdominal: Soft, Non-Tender, No Distention Neurological: Alert, Normal Mood/Affect, Normal Dorsiflexion, CN II-XII Intact, Other (Follows commands, has difficulty speaking consistent with expressive aphasia. She is able to say some 1-2 word answers. No facial droop. +RUE weakness, strength 2/5. +RLE weakness, strength 2/5. LUE 5/5, LLE 5/5. ) Back Exam: Normal Inspection Extremities: Normal Inspection Psychiatric: Anxious Skin Exam: Warm, Dry, Intact, Normal Color, No Rash Course - Vital Signs Last Recorded V/S: Last Vital Signs Temp 37.3 C 09/23/17 12:20 Pulse 86 09/23/17 12:20 Resp 20 09/23/17 12:20 BP 130/98 H 09/23/17 12:20 Pulse Ox 100 09/23/17 12:20 - Orders/Labs/Meds Orders: Active Orders 24 hr Category Date Time Status EKG 12 Lead [EKG Documentation Completion] [RC] STAT Care 09/23/17 12:23 Active Peripheral IV Care [RC] . DIRECTED Care 09/23/17 12:22 Active Peripheral IV Care [RC] . DIRECTED Care 09/23/17 12:23 Active Chest 1V Frontal [CR] Stat Exams 09/23/17 12:23 Taken Head wo Cont [CT] Stat Exams 09/23/17 12:23 Taken UA W/MICROSCOPIC [URIN] Stat Lab 09/23/17 13:30 Ordered Peripheral IV Insertion Adult [OM.PC] Routine Oth 09/23/17 12:22 Ordered Labs: Laboratory Tests 09/23/17 09/23/17 09/23/17 Range/Units 12:26 12:45 12:45 WBC 7.04 (3.98-10.04) K/mm3 RBC 4.31 (3.98-5.22) M/mm3 Hgb 13.6 (11.2-15.7) gm/L Hct 40.9 (34.1-44.9) % MCV 94.9 H (79.4-94.8) fl MCH 31.6 (25.6-32.2) pg MCHC 33.3 (32.2-35.5) g/dl RDW Std Deviation 41.3 (36.4-46.3) fL Plt Count 233 (182-369) K/mm3 MPV 11.1 (9.4-12.3) fl Neut % (Auto) 66.6 (34.0-71.1) % Lymph % (Auto) 18.6 L (19.3-51.7) % [place] % (Auto) 13.2 H (4.7-12.5) % Eos % (Auto) 1.1 (0.7-5.8) Baso % (Auto) 0.4 (0.1-1.2) % Neut # (Auto) 4.68 (1.56-6.13) K/mm3 Lymph # (Auto) 1.31 (1.18-3.74) K/mm3 [place] # (Auto) 0.93 H (0.24-0.36) K/mm3 Eos # (Auto) 0.08 (0.04-0.36) K/mm3 Baso # (Auto) 0.03 (0.01-0.08) K/mm3 PT 11.4 (9.5-12.1) SECONDS INR 1.05 Sodium (136-145) mEq/L Potassium (3.5-5.1) mEq/L Chloride (98-107) mEq/L Carbon Dioxide (21-32) mEq/L Anion Gap (5-15) BUN (7-18) mg/dL Creatinine (0.55-1.02) mg/dL Est Cr Clr Drug Dosing mL/min Estimated GFR (MDRD) (>60) mL/min BUN/Creatinine Ratio (14-18) Glucose (74-106) mg/dL POC Glucose 92 (70-105) mg/dL Calcium (8.5-10.1) mg/dL Magnesium (1.8-2.4) mg/dl Total Bilirubin (0.2-1.0) mg/dL AST (15-37) U/L ALT (14-59) U/L Alkaline Phosphatase (46-116) U/L Troponin I (0.00-0.056) ng/mL Total Protein (6.4-8.2) g/dl Albumin (3.4-5.0) g/dl Globulin gm/dL Albumin/Globulin Ratio (1-2) Urine Color (Yellow) Urine Appearance (Clear) Urine pH (5.0-8.0) Ur Specific [place] (1.005-1.030) Urine Protein (Negative) Urine Glucose (UA) (Negative) Urine Ketones (Negative) Urine Occult Blood (Negative) Urine Nitrite (Negative) Urine Bilirubin (Negative) Urine Urobilinogen (0.2-1.0) Ur Leukocyte Esterase (Negative) Urine RBC (0-5) /hpf Urine WBC (0-5) /hpf Ur Epithelial Cells (0-5) /hpf Urine Bacteria (FEW) /hpf Urine Mucus (FEW) /hpf Ethyl Alcohol (0.00) gm% 09/23/17 09/23/17 Range/Units 12:45 13:30 WBC (3.98-10.04) K/mm3 RBC (3.98-5.22) M/mm3 Hgb (11.2-15.7) gm/L Hct (34.1-44.9) % MCV (79.4-94.8) fl MCH (25.6-32.2) pg MCHC (32.2-35.5) g/dl RDW Std Deviation (36.4-46.3) fL Plt Count (182-369) K/mm3 MPV (9.4-12.3) fl Neut % (Auto) (34.0-71.1) % Lymph % (Auto) (19.3-51.7) % [place] % (Auto) (4.7-12.5) % Eos % (Auto) (0.7-5.8) Baso % (Auto) (0.1-1.2) % Neut # (Auto) (1.56-6.13) K/mm3 Lymph # (Auto) (1.18-3.74) K/mm3 [place] # (Auto) (0.24-0.36) K/mm3 Eos # (Auto) (0.04-0.36) K/mm3 Baso # (Auto) (0.01-0.08) K/mm3 PT (9.5-12.1) SECONDS INR Sodium 139 (136-145) mEq/L Potassium 4.0 (3.5-5.1) mEq/L Chloride 104 (98-107) mEq/L Carbon Dioxide 26 (21-32) mEq/L Anion Gap 13.0 (5-15) BUN 7 (7-18) mg/dL Creatinine 0.9 (0.55-1.02) mg/dL Est Cr Clr Drug Dosing 67.11 mL/min Estimated GFR (MDRD) > 60 (>60) mL/min BUN/Creatinine Ratio 7.8 L (14-18) Glucose 95 (74-106) mg/dL POC Glucose (70-105) mg/dL Calcium 9.5 (8.5-10.1) mg/dL Magnesium 2.0 (1.8-2.4) mg/dl Total Bilirubin 0.5 (0.2-1.0) mg/dL AST 13 L (15-37) U/L ALT 16 (14-59) U/L Alkaline Phosphatase 104 (46-116) U/L Troponin I < 0.017 (0.00-0.056) ng/mL Total Protein 8.0 (6.4-8.2) g/dl Albumin 3.8 (3.4-5.0) g/dl Globulin 4.2 gm/dL Albumin/Globulin Ratio 0.9 L (1-2) Urine Color Light yellow (Yellow) Urine Appearance Clear (Clear) Urine pH 7.0 (5.0-8.0) Ur Specific [place] 1.015 (1.005-1.030) Urine Protein Negative (Negative) Urine Glucose (UA) Negative (Negative) Urine Ketones Negative (Negative) Urine Occult Blood Negative (Negative) Urine Nitrite Negative (Negative) Urine Bilirubin Negative (Negative) Urine Urobilinogen 0.2 (0.2-1.0) Ur Leukocyte Esterase 1+ H (Negative) Urine RBC Not seen (0-5) /hpf Urine WBC 0-5 (0-5) /hpf Ur Epithelial Cells 0-5 (0-5) /hpf Urine Bacteria Few (FEW) /hpf Urine Mucus Not seen (FEW) /hpf Ethyl Alcohol 0.00 (0.00) gm% Meds: Medications Discontinued Medications Generic Name Dose Route Start Last Admin Trade Name Freq PRN Reason Stop Dose Admin Sodium Chloride 10 ml 09/23/17 12:23 09/23/17 13:18 Saline Flush FLUSH 10 ml ASDIRECTED PRN Administration Keep Vein Open - Re-Assessments/Exams Free Text/Narrative Re-Assessment/Exam: 09/23/17 18:55 Stroke alert called and patient taken quickly to the CT scanner. Given no last known well time not a candidate for TPA. CXR shows no acute abnormality. EKG shows NSR, no evidence of acute ischemia or arrhythmia. Labs including CBC, chem , LFT's, UA, INR are all normal. CT shows a 3.2 x 2.5 lobulated mass in the frontal lobes that crosses the midline. It has an enhancing wall. There is additional heterogeneous posterior mass to the lower attenuation mass. This portion measures 2.8 x 2.5 cm. Differential includes abscess vs. glioma. Discussed with [facility] one call sales representative electric service. Dr. Pinedo with neurosurgery was doing a procedure so didn't speak with me directly, but he reviewed the images and accepted the patient for tranfer to the [facility] ED. Will send by ambulance. I discussed findings with patient and her sister. The patient understood. She was able to speak a few words. Departure - Departure Time of Disposition: 14:00 Disposition: DC/Tfer to [facility] 02 Clinical Impression: Mass of brain, Upper extremity weakness, Aphasia Lower extremity weakness Qualifiers: Laterality: right Qualified Code(s): R29.898 - Other symptoms and signs involving the musculoskeletal system - Discharge Information Referrals: Gilberto Duong MD [Physician] - Forms: ED Department Discharge - My Orders Last 24 Hours: My Active Orders 09/23/17 12:22 Peripheral IV Care [RC] . DIRECTED Peripheral IV Insertion Adult [OM.PC] Routine 09/23/17 12:23 EKG 12 Lead [EKG Documentation Completion] [RC] STAT Peripheral IV Care [RC] . DIRECTED Chest 1V Frontal [CR] Stat Head wo Cont [CT] Stat 09/23/17 13:30 UA W/MICROSCOPIC [URIN] Stat - Assessment/Plan Last 24 Hours: My Active Orders 09/23/17 12:22 Peripheral IV Care [RC] . DIRECTED Peripheral IV Insertion Adult [OM.PC] Routine 09/23/17 12:23 EKG 12 Lead [EKG Documentation Completion] [RC] STAT Peripheral IV Care [RC] . DIRECTED Chest 1V Frontal [CR] Stat Head wo Cont [CT] Stat 09/23/17 13:30 UA W/MICROSCOPIC [URIN] Stat
--- NOTE | 2017-09-26 09:39 | CT ---
Head CT Technique: Multiple axial sections through the brain were obtained. Intravenous contrast was not utilized. Comparison: No prior intracranial imaging. Findings: Cystic and solid mass is identified within the left frontal region which shows slight extension to the right side across the midline. Cystic and solid component measures approximately 4.9 cm in AP dimension and 3.9 cm in transverse dimension. Surrounding edema is seen which is felt to be cytotoxic in etiology. Solid appearing component of this finding measures approximately 3.2 x 2.5 cm. This mass causes some displacement of the lateral ventricles but causes no significant midline shift at this time. No other abnormal parenchymal densities are seen. No evidence of intracranial hemorrhage. Bone window settings were reviewed which show no acute calvarial abnormality. Slight mucosal thickening seen of the junction of the frontal and ethmoid sinuses which is felt to be incidental. Impression: 1. Cystic and solid mass within the left frontal region with midline shift to the right frontal region. Surrounding cytotoxic edema is seen. Findings cause mild mass effect upon the lateral ventricles. 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 Brain abscess is also within the differential. Neurosurgical referral is recommended. Diagnostic code #9 I agree with preliminary report from [facility], finalized at 09/23/17, 1:44 PM Central Time
--- NOTE | 2017-09-26 09:39 | CR ---
Chest: Portable view of the chest was obtained. Comparison: Prior chest x-ray of 06/08/17. Stable scoliosis and mild degenerative change is seen within the spine. Heart size appears within normal limits for portable technique. Mediastinum is within normal limits. Lungs are clear. Impression: 1. Incidental findings. Nothing acute is seen on portable chest x-ray. Diagnostic code #2
== END 2017-09-23 14:25 ==
LOC: SUPCPDRO 12:13 → JD.ED 12:13
DX: G93.9 Disorder of brain, unspecified (principal); R47.01 Aphasia; R29.898 Other symptoms and signs involving the musculoskeletal system; Z79.899 Other long term (current) drug therapy; Z79.82 Long term (current) use of aspirin; Z87.891 Personal history of nicotine dependence; F32.9 Major depressive disorder, single episode, unspecified; F41.9 Anxiety disorder, unspecified
CPT/HCPCS: 36415; 70450; 71045; 80053; 81001; 82962; 83735; 84484; 85025; 85610; 93005; 99285; G0480; J7050

== ENCOUNTER 2017-10-26 10:10 | Emergency (ER) | payer OTHER ==
[2017-10-26 10:37] VITALS: BP 124/88
[2017-10-26] MEDS ORDERED: Mupirocin Oint 22 GM Tube TOP ONE (11:22)
--- NOTE | 2017-10-26 11:31 | EDM.PDOC ---
<Jet Rader - Last Filed: 10/26/17 11:45> ED HPI GENERAL MEDICAL PROBLEM - General Chief Complaint: Skin Complaint Stated Complaint: POST SURGICAL ISSUES WITH BRAIN SURGERY Time Seen by Provider: 10/26/17 10:59 Source of Information: Reports: Patient, Family History Limitations: Reports: No Limitations - History of Present Illness INITIAL COMMENTS - FREE TEXT/NARRATIVE: Patient is a 47-year-old female who presents to the ED complaining of an infection of an incision on her scalp. She had recently undergone surgery on September 24, 2017 at [facility] in [place] for removal of a mass in her left frontal lobe. Biopsy findings consistent with glioblastoma. Patient was discharged from the hospital on October 10, 2017 and has been feeling well up until yesterday. She reports feeling lightheaded, having a sore throat, and a low- grade fever. This morning she noticed pus-like fluid draining from the incision on her head. She states the incision is tender, but denies headache or worsening pain. She called Dr. Martínez's nurse and was told to go to the ED for further evaluation. Denies cough, congestion, chills, or malaise. States she is feeling somewhat bloated, but otherwise denies abdominal pain and discomfort upon palpation. Patient is to begin chemotherapy and radiation on Tuesday at the [facility]. Incisional Pain Score (Numeric/FACES): 3 - Related Data Allergies Allergy/AdvReac Type Severity Reaction Status Date / Time No Known Allergies Allergy Verified 10/26/17 10:24 Home Meds: Home Meds Citalopram Hydrobromide [Celexa] 40 mg PO DAILY 07/14/16 [History] Cholecalciferol (Vitamin D3) [Vitamin D3] 5,000 unit PO DAILY 06/29/17 [History] Docusate Sodium [Colace] 100 mg PO BID cap 07/01/17 [Rx] Famotidine [Pepcid] 20 mg PO Q12H tablet 07/01/17 [Rx] Magnesium Hydroxide [Milk of Magnesia] 30 ml PO BID PRN cup 07/01/17 [Rx] Sennosides [Senna] 8.6 mg PO BID PRN tablet 07/01/17 [Rx] Cyclobenzaprine [Flexeril] 10 mg PO TID PRN 09/23/17 [History] Acetaminophen 1,000 mg PO Q6H PRN 10/26/17 [History] Aspirin [Aspirin EC] 325 mg PO DAILY 10/26/17 [History] Cephalexin [Keflex] 500 mg PO TID #20 capsule 10/26/17 [Rx] Dexamethasone 2 mg PO BID 10/26/17 [History] LORazepam 1 mg PO BEDTIME PRN 10/26/17 [History] oxyCODONE HCl/Acetaminophen [Oxycodone-Acetaminophen 5-325] 1 - 2 tab PO Q6H PRN 10/26/17 [History] Past Medical History HEENT History: Reports: Allergic Rhinitis, Other (See Below) Other HEENT History: wears glasses Cardiovascular History: Reports: None Respiratory History: Reports: None Gastrointestinal History: Reports: None Genitourinary History: Reports: None 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 Recent brain surgery, September 24. Psychiatric History: Reports: Anxiety, Depression Endocrine/Metabolic History: Reports: None Hematologic History: Reports: Other (See Below) Other Hematologic History: erythrocytopenia, cryofibrinogenemia Immunologic History: Reports: None Oncologic (Cancer) History: Reports: Brain Dermatologic History: Reports: Other (See Below) Other Dermatologic History: acne, mixed cryofibrinogenemia - Infectious Disease History Infectious Disease History: Reports: Chicken Pox - Past Surgical History Head Surgeries/Procedures: Reports: None Cardiovascular Surgical History: Reports: None Respiratory Surgical History: Reports: None GI Surgical History: Reports: None Female Surgical History: Reports: Cervical Cryotherapy, Tubal Ligation Other Female Surgeries/Procedures: dysmenorrhea, menorrhagia, pre mentstural dyspohric disorder, thickened endometrium Endocrine Surgical History: Reports: None Neurological Surgical History: Reports: None Musculoskeletal Surgical History: Reports: Other (See Below) Other Musculoskeletal Surgeries/Procedures:: bilateral foot surgery, knee surgery Oncologic Surgical History: Reports: None Dermatological Surgical History: Reports: None Social & Family History - Family History Family Medical History: Noncontributory - Tobacco Use Smoking Status *Q: Never Smoker Second Hand Smoke Exposure: No - Caffeine Use Caffeine Use: Reports: Coffee - Alcohol Use Days Per Week of Alcohol Use: 7 Number of Drinks Per Day: 2 Total Drinks Per Week: 14 - Recreational Drug Use Recreational Drug Use: No ED ROS GENERAL - Review of Systems Constitutional: Reports: Fever. Denies: Chills, Malaise, Diaphoresis HEENT: Reports: Throat Pain. Denies: Rhinitis, Sinus Problem Respiratory: Denies: Shortness of Breath, Wheezing, Cough, Sputum Cardiovascular: Reports: Lightheadedness. Denies: Chest Pain, Blood Pressure Problem, Syncope GI/Abdominal: Denies: Abdominal Pain, Diarrhea, Decreased Appetite Skin: Reports: Other (drainage from scalp incision) Neurological: Reports: Dizziness. Denies: Headache ED EXAM, SKIN/RASH Exam Limited By: No Limitations General Appearance: Alert, WD/WN, No Apparent Distress Nose: No: Nasal Drainage Throat/Mouth: Other (slight erythma ). No: Inflammation Head: Normocephalic. No: Sinus Tenderness Neck: Supple, Non-Tender. No: Lymphadenopathy (L), Lymphadenopathy (R) Respiratory/Chest: No Respiratory Distress, Lungs Clear, Normal Breath Sounds, No Accessory Muscle Use Cardiovascular: Regular Rate, Rhythm. No: No Gallop, No JVD, No Murmur GI/Abdominal: Normal Bowel Sounds, Soft, Non-Tender. No: Guarding, Rigid Neurological: Alert, Oriented, Normal Cognition, No Motor/Sensory Deficits Psychiatric: Normal Affect, Normal Mood Skin: Warm, Dry, Normal Color, Wound/Incision (purulent drainage), Other Lymphatic: No Adenopathy Course - Vital Signs Last Recorded V/S: Last Vital Signs Temp 99.2 F 10/26/17 10:15 Pulse 76 10/26/17 10:15 Resp 16 10/26/17 10:15 BP 124/88 10/26/17 10:15 Pulse Ox 100 10/26/17 10:15 - Orders/Labs/Meds Orders: Active Orders 24 hr Category Date Time Status CULTURE ANAEROBIC + SMEAR [] Stat Lab 10/26/17 11:05 Received CULTURE STREP A CONFIRMATION [] Stat Lab 10/26/17 11:10 Results STREP SCRN A RAPID W CULT CONF [] Stat Lab 10/26/17 11:10 Results Labs: Laboratory Tests 10/26/17 10/26/17 10/26/17 Range/Units 11:30 11:30 11:30 WBC 12.62 H (3.98-10.04) K/mm3 RBC 4.06 (3.98-5.22) M/mm3 Hgb 12.7 (11.2-15.7) gm/L Hct 38.5 (34.1-44.9) % MCV 94.8 (79.4-94.8) fl MCH 31.3 (25.6-32.2) pg MCHC 33.0 (32.2-35.5) g/dl RDW Std Deviation 44.7 (36.4-46.3) fL Plt Count 308 (182-369) K/mm3 MPV 9.6 (9.4-12.3) fl Neutrophils % (Manual) 79 H (40-60) % Band Neutrophils % 1 (0-10) % Lymphocytes % (Manual) 14 L (20-40) % Monocytes % (Manual) 6 (2-10) % Eosinophils % (Manual) 0 L (0.7-5.8) % Basophils % (Manual) 0 L (0.1-1.2) Platelet Estimate Adequate RBC Morph Comment Normal Sodium 135 L (136-145) mEq/L Potassium 4.7 (3.5-5.1) mEq/L Chloride 101 (98-107) mEq/L Carbon Dioxide 29 (21-32) mEq/L Anion Gap 9.7 (5-15) BUN 18 (7-18) mg/dL Creatinine 0.7 (0.55-1.02) mg/dL Est Cr Clr Drug Dosing 83.07 mL/min Estimated GFR (MDRD) > 60 (>60) mL/min BUN/Creatinine Ratio 25.7 H (14-18) Glucose 98 (74-106) mg/dL Calcium 9.2 (8.5-10.1) mg/dL Total Bilirubin 0.2 (0.2-1.0) mg/dL AST 9 L (15-37) U/L ALT 23 (14-59) U/L Alkaline Phosphatase 64 (46-116) U/L C-Reactive Protein < 0.2 (<1.0) mg/dL Total Protein 6.9 (6.4-8.2) g/dl Albumin 3.2 L (3.4-5.0) g/dl Globulin 3.7 gm/dL Albumin/Globulin Ratio 0.9 L (1-2) Meds: Medications Discontinued Medications Generic Name Dose Route Start Last Admin Trade Name Jose Eduardo PRN Reason Stop Dose Admin Cephalexin 500 mg 10/26/17 12:33 10/26/17 12:44 Keflex PO 10/26/17 12:34 500 mg ONETIME ONE Administration Mupirocin 1 gm 10/26/17 11:22 10/26/17 11:52 Bactroban Oint TOP 10/26/17 11:23 1 gm ONETIME ONE Administration Departure - Departure Disposition: Home, Self-Care 01 Clinical Impression: Infection of scalp - Discharge Information Prescriptions: Cephalexin [Keflex] 500 mg PO TID #20 capsule Referrals: Jemima Don, COMMERCIAL REAL ESTATE ATTORNEY [Primary Care Provider] - Forms: ED Department Discharge Additional Instructions: warm compresses area of drainage 2 to 3 times daily for the next 3 days, cephalexin antibiotic 500 mg 3 times daily for 1 week. Bactroban ointment over area of drainage 3 times daily for 1 week, call or see Dr Pinedo if symptoms worsening in any way. Return to ED as needed. - My Orders Last 24 Hours: My Active Orders 10/26/17 11:05 CULTURE ANAEROBIC + SMEAR [RM] Stat 10/26/17 11:10 CULTURE STREP A CONFIRMATION [RM] Stat STREP SCRN A RAPID W CULT CONF [RM] Stat - Assessment/Plan Last 24 Hours: My Active Orders 10/26/17 11:05 CULTURE ANAEROBIC + SMEAR [RM] Stat 10/26/17 11:10 CULTURE STREP A CONFIRMATION [RM] Stat STREP SCRN A RAPID W CULT CONF [RM] Stat <Sage Silva L - Last Filed: 10/26/17 13:27> ED ROS GENERAL - Review of Systems Review Of Systems: See Below ED EXAM, SKIN/RASH Exam: See Below Course - Orders/Labs/Meds Labs: Laboratory Tests 10/26/17 10/26/17 10/26/17 Range/Units 11:30 11:30 11:30 WBC 12.62 H (3.98-10.04) K/mm3 RBC 4.06 (3.98-5.22) M/mm3 Hgb 12.7 (11.2-15.7) gm/L Hct 38.5 (34.1-44.9) % MCV 94.8 (79.4-94.8) fl MCH 31.3 (25.6-32.2) pg MCHC 33.0 (32.2-35.5) g/dl RDW Std Deviation 44.7 (36.4-46.3) fL Plt Count 308 (182-369) K/mm3 MPV 9.6 (9.4-12.3) fl Neutrophils % (Manual) 79 H (40-60) % Band Neutrophils % 1 (0-10) % Lymphocytes % (Manual) 14 L (20-40) % Monocytes % (Manual) 6 (2-10) % Eosinophils % (Manual) 0 L (0.7-5.8) % Basophils % (Manual) 0 L (0.1-1.2) Platelet Estimate Adequate RBC Morph Comment Normal Sodium 135 L (136-145) mEq/L Potassium 4.7 (3.5-5.1) mEq/L Chloride 101 (98-107) mEq/L Carbon Dioxide 29 (21-32) mEq/L Anion Gap 9.7 (5-15) BUN 18 (7-18) mg/dL Creatinine 0.7 (0.55-1.02) mg/dL Est Cr Clr Drug Dosing 83.07 mL/min Estimated GFR (MDRD) > 60 (>60) mL/min BUN/Creatinine Ratio 25.7 H (14-18) Glucose 98 (74-106) mg/dL Calcium 9.2 (8.5-10.1) mg/dL Total Bilirubin 0.2 (0.2-1.0) mg/dL AST 9 L (15-37) U/L ALT 23 (14-59) U/L Alkaline Phosphatase 64 (46-116) U/L C-Reactive Protein < 0.2 (<1.0) mg/dL Total Protein 6.9 (6.4-8.2) g/dl Albumin 3.2 L (3.4-5.0) g/dl Globulin 3.7 gm/dL Albumin/Globulin Ratio 0.9 L (1-2) - Re-Assessments/Exams Free Text/Narrative Re-Assessment/Exam: 10/26/17 11:54 Patient initially evaluated by Justine N, TECHNICAL SOURCING RECRUITER student. I have also evaluated patient, I agree with the hx and exam as documented by Justine Jacobs. 10/26/17 13:24 WBC very mildly elevated at 12,600, CRP less than 0.2. Culture has been done of the drainage. Discussed with Dr Pinedo, will start on cephalexin 500 mg tid for 1 week. Discharge instr. as documented. Departure - Departure Time of Disposition: 12:35 Condition: Fair
[2017-10-26] MEDS ORDERED: Cephalexin 500 MG Cap PO ONE (12:33)
== END 2017-10-26 12:55 | disposition home or self-care (01) ==
LOC: JD.ED 10:10
DX: L08.9 Local infection of the skin and subcutaneous tissue, unspecified (principal); F41.9 Anxiety disorder, unspecified; F32.9 Major depressive disorder, single episode, unspecified; Z79.899 Other long term (current) drug therapy
CPT/HCPCS: 36415; 80053; 85007; 85027; 86140; 87075; 87081; 87205; 87430; 99283; A9270